=== PATIENT | male | born 2000 | race Native Hawaiian/Other Pacific Islander ===

== ENCOUNTER 2024-09-15 14:01 | Outpatient (AMB) | payer MEDICARE, MEDICAID, SELFPAY ==
--- NOTE | 2024-09-15 14:07 | AM.OFFWIN_ITS ---
Intake Vital Signs 09/15/24 14:13 Weight 137 lb BP 112/70 Blood Pressure Location Rt brachial Position Sitting Pulse 70 Pulse Source Pulse Oximeter Pulse Oximetry (%) 98 Oxygen Delivery Method Room Air Intake Visit Reasons: EP-convulsions Intake Note: Patient here for epilepsy, caregiver states he had an episode about 1 hr ago and fell backwards. denies hitting head or back. Patient Tobacco Use Status: Never used Tobacco Allergies No Known Allergies Allergy (Verified 09/15/24 14:13) Do you need a note to return to daycare/school/sports/work: No HPI HPI Comments History of Present Illness Details Israeli video interpreter deaf used for this visit. History of Present Illness - The patient is a 24-year-old male pres enting with his mom and aunt for a refill of anti-seizure medications and discussion of seizure management. - He relocated from [place] in [facility] and has yet to establish care with a primary care provider. - The patient has run out of oxcarbazine , clobazam, and lamotrigine. Seizures occur even with medication adherence but increase in frequency and severity when medications are missed and when he vapes. - The patient's medical history is signi ficant for a resected brain tumor and a Sentiva neurostimulator implant for seizure control. - The sentiva device needs to be disconn ected during MRI due to magnetic properties, and the patient currently lacks the accompanying magnet recommended for use during episodes. Physical Exam General: Cooperative, healthy appearing, comfortable, no acute distress and well developed Orientation: Patient oriented x3 Limitations: Israeli speaking Head: Normal to inspection, wearing a hat Ears: Hearing grossly normal bilaterally Nose: Normal External nose present Face and sinus: Normal facial exam Eyes: Appearance normal, both eyes and all related structures Neck: Normal visual inspection and Yes full ROM Respiratory: Normal respiratory effort and able to speak in complete sentences. Skin: No rashes or lesions noted Neuro: Patient oriented x3 Extremities: Normal to inspection [facility] Social History Patient Tobacco Use Status: Never used Tobacco Review of Systems Const All systems reviewed & are unremarkable except as noted in HPI and below Physical Exam Vital Signs: Last Vital Signs Pulse 70 09/15/24 14:13 BP 112/70 09/15/24 14:13 Pulse Ox 98 09/15/24 14:13 Oxygen Delivery Method Room Air 09/15/24 14:13 Assessment & Plan Assessment & Plan (1) Epilepsy: Code(s): G40.909 - Epilepsy, unspecified, not intractable, without status epilepticus Qualifiers: Epilepsy type: unspecified Intractability: not intractable Status epilepticus: without status epilepticus Qualified Code(s): G40.909 - Epilepsy, unspecified, not intractable, without status epilepticus Plan: I will refill the patient's anti-seizure medications, providing a 30-day supply of the 3 meds he ran out of, see below, to manage his epilepsy until establishment with a primary care provider. Follow-up with a neurologist is necessary for comprehensive management and assessment of his current regimen. We were able to obtain a New patient appointment with [place] [facility] [place], pt and his family were given all of the information. The patient's brain tumor resection history and Sentiva device for seizure control are noted, and device disconnection for MRIs addressed. Patient was informed and verbally consented to the use of an ambient scribe for clinic note documentation during this visit. Medications: New clobazam 10 mg PO BID 30 days 60 tabs 0RF oxcarbazepine (Trileptal) 600 mg PO BID 30 days 60 tabs 0RF lamotrigine 25 mg PO BID 30 days 60 tabs 0RF Coding Level of Care Code New Pt Level 4 (19378) Diagnoses Nonintractable epilepsy without status epilepticus, unspecified epilepsy type G40.909 Epilepsy type: unspecified Intractability: not intractable Status epilepticus: without status epilepticus
[2024-09-15 14:13] VITALS: BP 112/70; PULSE 70; O2SAT 98
== END 2024-09-15 15:38 | disposition home or self-care (01) ==
PROVIDERS: Visit Provider Physician Assistant
DX: G40.909 Epilepsy, unspecified, not intractable, without status epilepticus (principal)

== ENCOUNTER → 2024-09-15 14:01 | Outpatient (BNVA) | payer MEDICAID, SELFPAY | PROVIDERS: Visit Provider Physician Assistant | DX: G40.909 Epilepsy, unspecified, not intractable, without status epilepticus (principal) | CPT/HCPCS: 99202 ==

== ENCOUNTER 2024-09-27 12:23 | Outpatient (AMB) | payer MEDICARE, MEDICAID, SELFPAY ==
--- NOTE | 2024-09-27 12:24 | MHC.PC.OV ---
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 Gelatin Maker Utility Required: Yes Gelatin Maker Utility Language: Burial Vault Maker Name: Raul [id number] Information Interpreted: non-clinical & clinical Allergies No Known Allergies Allergy (Verified 09/27/24 13:06) Medication List - Last Reconciled 09/27/24 by Rosa Barrios CNP clobazam 10 mg PO BID 30 days divalproex (Depakote) 500 mg PO BID lamotrigine 25 mg PO BID 30 days levetiracetam (Keppra) 500 mg PO BID levetiracetam (Keppra) 1,000 mg PO BID levothyroxine 25 mcg PO DAILY olanzapine 15 mg PO BEDTIME oxcarbazepine (Trileptal) 600 mg PO BID 30 days sertraline 25 mg PO DAILY topiramate (Topamax) 200 mg PO BID Tobacco use date assessed: 09/27/24 Dental Screening Dental Screen Date: 09/27/24 Did you have a dental visit in the last 12 months?: No Did you have a dental problem in the last 6 months where you did not have access to dental care?: No Was dental information given to patient?: Yes HPI HPI Comments History of Present Illness Details 24-year-old Togolese-speaking male, accompanied by her aunt, presents to establish care. He relocated from [place] in May 2024 and has yet to establish care with a primary care provider. He was evaluated at the [facility] walk[facility]in [facility] on 09/15/2024 for antiseizure medications refill. He noted that seizures occur even with medication adherence but increase in frequency and severity when medications are missed and when he vapes. Prior PCP? - [place] Last office visit - 3 months ago Last CPE Unknown Last labs - 08/2024 at [facility] related to seizure admission. Labs were unremarkable except for slightly elevated TSH. Lipid panel was not done. Will recheck TSH/T4 and check lipid panel level. Acute issue(s) - Epilepsy: He is on oxcarbazepine, clobazam, lamotrigine, keppra, depakote, trileptal, topamax. His medications were were initially prescribed at [facility] - Anxiety and Depression: He notes controlled anxiety and depressive symptoms. He is on Sertraline 25 mg daily. He sees a therapist weekly - He notes that he takes olanzapine for sleep - Hypothyroidism: He takes levothyroxine 25 mcg daily Past Medical History - Epilepsy, resected brain tumor and sentiva neurostimulator implant for seizure control. The sentiva device needs to be disconnected during MRI due to magnetic properties, and the patient currently lacks the accompanying magnet recommended for use during episodes, hypothyroidism, anxiety, depression, Surgical History - Brain surgery, sentiva neurostimulator implant to left upper chest Family History - Mom: HTN - Dad: Diabetes Social History - Nonsmoker. Vapes nicotine every day. Does not drink alcohol. Denies recreational drug use - Has been making healthy dietary choices. Active but does not exercise. Generally sleep well Health maintenance - Last eye exam in [place] 2-3 years ago. Referred to ophthalmology for routine eye care - Last dental visit was 2 years ago; encouraged to schedule an appointment with his dentist for routine dental care - Last tetanus vaccine was more than 10 years ago; received Tdap vaccine today - He notes that he is up-to-date on the influenza vaccine [facility] Medical History (Updated 09/27/24 @ 13:59 by Rosa Barrios CNP) Brain tumor Unclassified epileptic seizures Anxiety Surgical History History of surgery of head Family History (Updated 09/27/24 @ 12:47 by Vianey Tavarez MA) Mother High blood pressure Father Diabetes Social History Housing: Apartment Patient Tobacco Use Status: Never used Tobacco e-Cigarette/Vaping Use: Currently Using Second Hand Smoke Exposure: No service: No Current occupational status: disabled Current occupational exposures/hazards: No Cognitive needs: No Hearing needs: No Vision needs: Yes Questionnaire PHQ-9 Over the last 2 weeks, how often have you been bothered by any of the following problems? 1. Little interest or pleasure in doing things: nearly every day 2. Feeling down, depressed, or hopeless: more than half the days 3. Trouble falling or staying asleep, or sleeping too much: several days 4. Feeling tired or having little energy: nearly every day 5. Poor appetite or overeating: more than half the days 6. Feeling bad about yourself - or that you are a failure or have let yourself or your family down: nearly every day 7. Trouble concentrating on things, such as reading the newspaper or watching television: nearly every day 8. Moving or speaking so slowly that other people could have noticed. Or the opposite - being so fidgety or restless that you have been moving around a lot more than usual: nearly every day 9. Thoughts that you would be better off or of hurting yourself in some way: not at all Total score: 20 Depression Screening Interpretation: Positive Depression Screening Follow-up: Existing condition and In treatment Depression Screening Done: Yes 45394 - PHQ-9 Billing: Yes Source: Developed by Drs. Nhan Boyle, Klaudia Kwok, Vazquez Moncada and colleagues, with an educational analilia from [employer]. Thrive Questionnaire Date Thrive assessed: 09/27/24 I am a: Patient What is your living situation today?: I have a steady place to live Within the past 12 months, did the food you bought not last and you didn't have the money to get more?: Sometimes True Within the past 12 months, did you worry whether your food would run out before you got money to buy more?: Sometimes True Do you have trouble paying for medicines?: No Do you have trouble getting transportation to medical appointments?: No Do you have trouble paying your heating and electricity bill?: No Do you have trouble taking care of your child, family member or friend?: Yes Do you have trouble with day-to-day activities such as bathing, preparing meals, shopping, managing finances, etc.?: Yes Are you currently unemployed and looking for a job?: No Are you interested in more education?: Yes Please select the resources that you would like help with: Education Currently or been in a relationship where the following occur: No concerns reported THRIVE Score: 2 AUDIT C Alcohol Use Questionnaire (AUDIT-C) 1. How often do you have a drink containing alcohol?: Never 3. How often do you have six or more drinks on one occasion?: Never Total Score: 0 Score Reviewed/Action Taken: Yes CHRIS-7 AMB Questionnaire CHRIS-7 Date CHRIS - 7 assessed: 09/27/24 Feeling nervous, anxious, or on edge: 3 = Nearly every day Not being able to stop or control worryin = More than half the days Worrying too much about different things: 0 = Not at all Trouble relaxin = Nearly every day Being so restless that it is hard to sit still: 3 = Nearly every day Becoming easily annoyed or irritable: 2 = More than half the days Feeling afraid as if something awful might happen: 0 = Not at all Total CHRIS-7 score (0-4 normal; 5-9 mild; 10-14 moderate; 15-21 severe): 13 Source: Developed by Drs. Nhan Boyle, Klaudia Kwok, Vazquez Moncada and colleagues, with an educational analilia from [employer]. CHRIS-7 Assessment Billing CHRIS-7 Assessment Tool: CHRIS-7 Assessment 96824 Review of Systems Const Details: Denies chills, Denies fatigue, Denies fever(s), Denies headache(s) and Denies weakness HEENT Denies change in vision, Denies dizziness, Denies headache(s), Denies hearing loss, Denies nasal congestion, Denies sinus pain, Denies sinus pressure and Denies sore throat Card Denies chest pain, Denies lightheadedness, Denies dyspnea and Denies other (palpitations) Resp Denies cough, Denies dyspnea and Denies wheezing GI Denies abdominal pain, Denies melena, Denies hematochezia, Denies change in bowel habits, Denies dyspepsia and Denies nausea Denies hematuria and Denies dysuria Musc Denies abnormal gait, Denies myalgias, Denies arthralgias, Denies numbness and Denies tingling Skin/Breast Denies rash, Denies unusual bruising and Denies wounds Neuro Denies abnormal gait, Denies dizziness, Denies headache(s), Denies memory loss, Denies numbness, Denies Sensory deficit (Neuro), Denies tingling and Denies weakness Psych Denies anxiety, Denies depression and Denies memory loss Endo Denies cold intolerance, Denies fatigue, Denies heat intolerance, Denies polydipsia and Denies polyuria Caesar/Lymph Denies easy bleeding and Denies easy bruising Aller/Immun Denies wheezing Physical exam (Primary Care) Vital Signs: Last Vital Signs Temp 97.8 F 09/27/24 12:50 Pulse 88 09/27/24 12:50 Resp 16 09/27/24 12:50 BP 124/71 09/27/24 12:50 Pulse Ox 100 09/27/24 12:50 Oxygen Delivery Method Room Air 09/27/24 12:50 BMI result Body Mass Index 24.1 Tobacco/Smoking Status: Tobacco use Status Tobacco use date assessed 09/27/24 09/27/24 12:54 Patient Tobacco Use Status Never used Tobacco 09/27/24 12:24 e-Cigarette/Vaping Use Currently Using 09/27/24 12:54 PHQ-9: PHQ-9 Score PHQ-9: Total score 20 09/27/24 14:11 Depression Screening Interpretation: Positive Depression Screening Follow-up: Existing condition and In treatment Thrive Assessment: Date of Thrive Assessment Date Thrive assessed 09/27/24 09/27/24 12:59 Currently or been in a relationship where the following occur: No concerns reported Const Other: General: no acute distress, well developed, alert and awake Nutritional Appearance: well nourished Orientation/consciousness: patient oriented x3 HENMT Head: Yes normocephalic and Yes atraumatic Ears: hearing grossly normal bilaterally and TM's normal bilaterally General nose exam: Normal external nose present and Normal nares present Mouth: Normal oral and palatal mucosa present and moist mucous membranes Teeth and gingiva: dentition normal Throat: Yes oropharynx normal Eyes Pupils: Equal, round and reactive pupils present and Pupil accommodation reflex normal EOM: EOMs intact bilaterally Neck Neck: Yes normal visual inspection, Yes no lymphadenopathy and Yes trachea midline Thyroid: Thyroid normal Carotids: no bruits Lymphatic: no lymphadenopathy noted Chest Chest palpation & inspection: normal inspection of the chest Resp Effort & Inspection: normal respiratory effort Auscultation: clear to auscultation bilaterally Cardio Rate: regular rate Rhythm: regular rhythm Heart sounds: S1 normal heart sound present, S2 normal heart sound present, no gallops, no murmurs and no rubs Bruits: no abdominal aortic bruits and no carotid bruits GI Palpation (GI): No Abdominal aortic bruit present, Soft to palpation, nontender, No hepatosplenomegaly present and No Rebound tenderness present Auscultation: normal bowel sounds General: Yes no CVA tenderness Back/Spine/Pelvis Back: no CVA tenderness Cervical Spine: cervical ROM normal and No Cervical spine tenderness Thoracic/Lumbar Spine: thoraco-lumbar ROM normal, No pain with thoraco-lumbar ROM, No thoracic spinal tenderness and No lumbar spinal tenderness Skin General: warm and dry. Normal skin color. Normal skin turgor Lesions: no lesions Rashes: no rashes Trauma: no lacerations or abrasions Wounds: no wounds Nails: normal Neuro General: patient oriented x3, gait normal and CN's II-XI intact bilaterally Cranial nerves: Yes Equal, round and reactive pupils present Cognition (Neuro): normal cognition Gait exam (Neuro): Normal gait present Motor exam (neuro): 5/5 motor strength present throughout Sensory Exam: No Sensory deficit (Neuro) Deep tendon reflexes (DTR's): Right patellar reflex intensity grade: 2+ and Left patellar reflex intensity grade: 2+ Extrem General: Yes normal to inspection, No edema and No calf tenderness Psych Appearance: grossly normal Affect: normal affect Attitude: cooperative Thought process: Normal thought process present Immunizations Boostrix Tdap 2.5 Lf unit-8 mcg-5 Lf/0.5 mL intramuscular syringe Performing Provider: Rosa Barrios CNP Performing Location[place] [facility] Administered by: Berenice Champion RN on 09/27/24 14:09 Dose Route Admin Location Dispensed Lot Number Expiration Date NDC Hydraulic Oil Tool Operator 0.5 mL IM Right Deltoid 0.5 mL [id number] 06/25/26 [id number] Incentive Logic VIS Given Date VIS Provided VIS Publication Date 09/27/24 Single Vaccine 21 Eligibility Eligibility Date Funding Source Not [facility] Eligible 09/27/24 Private Coding Level of Care Code New Pt Level 3 (59527) New Pt Prev Care 18-39yr(14148 Diagnoses Normal physical examination, routine Z00.00 Nonintractable epilepsy without status epilepticus, unspecified epilepsy type G40.909 Epilepsy type: unspecified Intractability: not intractable Status epilepticus: without status epilepticus History of brain tumor Z87.898 Anxiety and depression F41.9; F32.A Eye exam, routine Z01.00 Engages in vaping Z72.89 Laboratory tests ordered as part of a complete physical exam (CPE) Z00.00 Additional Codes CHRIS-7 Assessment Billing - CHRIS-7 Assessment Tool: CHRIS-7 Assessment 00840 ([id number]) PHQ-9 - 66495 - PHQ-9 Billing: Yes ([id number]) Assessment & Plan Assessment & Plan (1) Normal physical examination, routine: Code(s): Z00.00 - Encounter for general adult medical examination without abnormal findings Category: Medical Plan: No significant functional limitation. Continue current treatment regimen. Healthy diet and routine exercise encouraged. Follow-up as planned. Verbalized understanding and agreed with the plan. (2) Epilepsy: Code(s): G40.909 - Epilepsy, unspecified, not intractable, without status epilepticus Category: Medical Qualifiers: Epilepsy type: unspecified Intractability: not intractable Status epilepticus: without status epilepticus Qualified Code(s): G40.909 - Epilepsy, unspecified, not intractable, without status epilepticus Plan: Continue current treatment regimen. Referred to [facility]. Follow-up with symptoms or concerns. Verbalized understanding and agreed with the plan. (3) History of brain tumor: Code(s): Z87.898 - Personal history of other specified conditions Category: Medical Plan: Plan as above. (4) Anxiety and depression: Code(s): F41.9 - Anxiety disorder, unspecified; F32.A - Depression, unspecified Category: Medical Plan: Controlled anxiety and depressive symptoms. PHQ-9 and CHRIS-7 scores revealed severe depression and moderate anxiety respectively. Continue current treatment regimen. Routine exercise encouraged. Follow-up in 2 months or sooner with worsening or new symptoms. Verbalized understanding and agreed with the plan. (5) Eye exam, routine: Code(s): Z01.00 - Encounter for examination of eyes and vision without abnormal findings Category: Medical Plan: Last eye exam in [place] 2-3 years ago. Referred to ophthalmology for routine eye care. (6) Engages in vaping: Code(s): Z72.89 - Other problems related to lifestyle Category: Medical Plan: He vapes nicotine daily which is also risk factor for his seizures. Instructed on the health risks and complications of vaping and encouraged to stop. Nicotine patch ordered as requested; advised to use as prescribed. Instructed on the risks, benefits, and potential adverse reactions of the medication. Follow-up as needed. Verbalized understanding and agreed with the plan. (7) Laboratory tests ordered as part of a complete physical exam (CPE): Code(s): Z00.00 - Encounter for general adult medical examination without abnormal findings Category: Medical Plan: Fasting labs ordered as part of a complete physical exam. Advised to fast for at least 10 hours before getting labs drawn. May drink water Verbalized understanding and agreed with treatment plan. Orders: Orders Lipid Panel Today Z00.00 - Encounter for general adult medical examination without abnormal findings Microalbumin, Random (w Creat) Today Z00.00 - Encounter for general adult medical examination without abnormal findings Vitamin D 25-OH Total Today Z00.00 - Encounter for general adult medical examination without abnormal findings TSH reflex Free T4 Today Z00.00 - Encounter for general adult medical examination without abnormal findings TDaP Immunization Today Z23 - Encounter for immunization Referrals Neurology Referral G40.909 - Epilepsy, unspecified, not intractable, without status epilepticus, Z87.898 - Personal history of other specified conditions Ophthalmology Referral Z01.00 - Encounter for examination of eyes and vision without abnormal findings Medications: New nicotine 1 patch transdermal DAILY 42 ea 0RF 6 weeks
[2024-09-27 12:50] VITALS: BP 124/71; PULSE 88; RESP 16; TEMP 36.6; O2SAT 100; BMI 24.1
== END 2024-09-27 14:16 | disposition home or self-care (01) ==
LOC: HO.HMCFM 12:23
PROVIDERS: PCP Nurse Practitioner Family; Visit Provider Nurse Practitioner Family
DX: Z00.00 Encounter for general adult medical examination without abnormal findings (principal); G40.909 Epilepsy, unspecified, not intractable, without status epilepticus; Z87.898 Personal history of other specified conditions; F41.9 Anxiety disorder, unspecified; F32.A Depression, unspecified; Z72.89 Other problems related to lifestyle; Z23 Encounter for immunization

== ENCOUNTER → 2024-09-27 12:23 | Outpatient (BNVA) | payer MEDICARE, MEDICAID, SELFPAY | PROVIDERS: PCP Nurse Practitioner Family; Visit Provider Nurse Practitioner Family | DX: Z00.00 Encounter for general adult medical examination without abnormal findings (principal); Z23 Encounter for immunization; G40.909 Epilepsy, unspecified, not intractable, without status epilepticus; F41.9 Anxiety disorder, unspecified; F32.A Depression, unspecified; Z72.89 Other problems related to lifestyle | CPT/HCPCS: 90471; 90715; 96127; 99212; 99395 ==

== ENCOUNTER 2024-11-25 14:31 | Outpatient (REF) | payer MEDICARE, MEDICAID, SELFPAY ==
--- NOTE | ~2024-11-25 | XR_ITS ---
EXAMINATION: XR FOOT, LEFT CLINICAL INFORMATION: W19.XXXA - Unspecified fall, initial encounter COMPARISON: None available. TECHNIQUE: AP, lateral, and oblique views of the left foot. FINDINGS: The bones and soft tissues are normal. No fracture. Alignment is anatomic. Joint spaces are maintained. XR/XR foot LT min 3V IMPRESSION: Unremarkable left foot Electronically signed by: Fab Acuna MD 11/25/2024 05:10 PM EDT
== END 2024-11-25 14:32 | disposition home or self-care (01) ==
LOC: HO.HMGCX 14:31
PROVIDERS: PCP Nurse Practitioner Family; Visit Provider Physician Assistant
DX: S92.355A Nondisplaced fracture of fifth metatarsal bone, left foot, initial encounter for closed fracture (principal); S92.345A Nondisplaced fracture of fourth metatarsal bone, left foot, initial encounter for closed fracture; W18.39XA Other fall on same level, initial encounter; Y93.89 Activity, other specified; Y92.009 Unspecified place in unspecified non-institutional (private) residence as the place of occurrence of the external cause; Y99.9 Unspecified external cause status
CPT/HCPCS: 73630; 99212

== ENCOUNTER 2024-11-25 14:31 | Outpatient (AMB) | payer MEDICARE, MEDICAID, SELFPAY ==
[2024-11-25 15:14] VITALS: BP 110/72; PULSE 89; TEMP 36.7; O2SAT 97
--- NOTE | 2024-11-25 15:14 | AM.OFFWIN_ITS ---
Intake Vital Signs 11/25/24 15:14 Height 5 ft 4 in BMI Reason not done Patient refused/unable BP 110/72 Blood Pressure Location Lt brachial Position Sitting Pulse 89 Pulse Source Pulse Oximeter Temp 98.0 F Temp Source Oral Pulse Oximetry (%) 97 Oxygen Delivery Method Room Air Intake Visit Reasons: EP LT foot, painful, swelling Intake Note: Pt presents to the office today for c/o left foot pain and swelling. Pt states he had a seizure and when he was falling from the seizure he landed on his left foot. Patient Tobacco Use Status: Never used Tobacco Data Communications Engineer Required: Yes Data Communications Engineer Language: President And Ceo Name: Cristina([id number]) Allergies No Known Allergies Allergy (Verified 11/25/24 15:15) HPI HPI Comments History of Present Illness Details Filipino video grey goods marker used for this visit. Patient is a 24-year-old Filipino-speaking male who is here with his mother complaining of left foot pain. His mother tells me he sustained an injury to his foot when he was having a seizure yesterday. She states he believes that he twisted his left foot and he has been unable to walk on it since. He tried taking ibuprofen without relief. He tells me most of the pain is in the 2nd 3rd 4th toes and along the lateral side of the foot. He is able to move his ankle and his toes. [facility] Medical History Brain tumor Unclassified epileptic seizures Anxiety Surgical History History of surgery of head Family History Mother High blood pressure Father Diabetes Social History Housing: Apartment Patient Tobacco Use Status: Never used Tobacco e-Cigarette/Vaping Use: Currently Using Second Hand Smoke Exposure: No service: No Current occupational status: disabled Current occupational exposures/hazards: No Cognitive needs: No Hearing needs: No Vision needs: Yes Review of Systems Const All systems reviewed & are unremarkable except as noted in HPI and below Physical Exam Vital Signs: Last Vital Signs Temp 98.0 F 11/25/24 15:14 Pulse 89 11/25/24 15:14 BP 110/72 11/25/24 15:14 Pulse Ox 97 11/25/24 15:14 Oxygen Delivery Method Room Air 11/25/24 15:14 Const General: cooperative, healthy appearing, comfortable and no acute distress Orientation/consciousness: patient oriented x3 Limitations: wheelchair HEENT Head: Yes normal to inspection Resp Effort & Inspection: normal respiratory effort and able to speak in complete sentences Neuro General: patient oriented x3 Extrem Other: Left foot tenderness to palpation of the 2nd 3rd and 4th toes into the mid foot and along the base of the 5th metatarsal extending to the tip of the 5th toe. Full range of motion with pain, neurovascularly intact. Left ankle normal-appearing patient able to move it slightly but do the pain in his toes he is hesitant. Assessment & Plan Assessment & Plan (1) Fall: Code(s): W19.XXXA - Unspecified fall, initial encounter Qualifiers: Encounter type: initial encounter Qualified Code(s): W19.XXXA - Unspecified fall, initial encounter Plan: We will get a foot x-ray to ensure no fracture or dislocation. My interpretation of the foot x-ray is a fracture of the 4th and 5th metatarsals nondisplaced. Gave patient a short boot, he is ambulating well in it. Recommended rest ice ibuprofen and follow up with Orthopedics. Pending final read by radiologist. We will call the patient in the morning if the read is any different. (2) Toe pain, left: Code(s): M79.675 - Pain in left toe(s) Plan: as above (3) Metatarsal fracture: Code(s): S92.309A - Fracture of unspecified metatarsal bone(s), unspecified foot, initial encounter for closed fracture Qualifiers: Encounter type: initial encounter Fracture alignment: nondisplaced Fracture type: closed Laterality: left Metatarsal bone: fifth Qualified Code(s): S92.355A - Nondisplaced fracture of fifth metatarsal bone, left foot, initial encounter for closed fracture Plan: as above (4) Metatarsal fracture: Code(s): S92.309A - Fracture of unspecified metatarsal bone(s), unspecified foot, initial encounter for closed fracture Qualifiers: Encounter type: initial encounter Fracture alignment: nondisplaced Fracture type: closed Laterality: left Metatarsal bone: fourth Qualified Code(s): S92.345A - Nondisplaced fracture of fourth metatarsal bone, left foot, initial encounter for closed fracture Plan: as above Orders: Orders XR foot LT min 3V Today M79.675 - Pain in left toe(s), W19.XXXA - Unspecified fall, initial encounter Referrals Orthopedics Referral S92.355A - Nondisplaced fracture of fifth metatarsal bone, left foot, initial encounter for closed fracture Coding Level of Care Code Est Pt Level 4 (99364) Diagnoses Fall, initial encounter W19.XXXA Encounter type: initial encounter Toe pain, left M79.675 Closed nondisplaced fracture of fifth metatarsal bone of left foot, initial encounter S92.355A Encounter type: initial encounter Fracture alignment: nondisplaced Fracture type: closed Laterality: left Metatarsal bone: fifth
--- OUTSIDE RECORDS SUMMARY | 2024-11-25 17:04 | XMS_ITS | Clinical Summary ---
Author Organization [address] [facility] Address [address] [place] [address] Phone Care Team Providers Care Fast Food Cashier Name Role Phone Emmy Tarango PATTERN PUNCHER Primary Care Prov ider Encounters Date Type Department Care Team Description 11/12/2024 11:30 AM EDT - 11/12/2024 11:59 PM EDT Hospital Encounter [facility] Non-Invasive Cardiology [address] [place] [address] Generalized anxiety disorder Discharge Disposition: Home or Self Care from Last 3 Months Social History Tobacco Use Types Packs/Day Years Used Date Smoking Tobacco: Never Assessed Sex and Gender Information Value Date Recorded Sex Assigned at Not on file Legal Sex Male 11:07 AM EDT Gender Identity Not on file Sexual Orientation Not on file Plan of Treatment Health Maintenance Due Date Last Done Comments HPV Vaccines (1 - Male 3-dos e series) 2014 Hepatitis B Vaccines (1 of 3 - 19+ 3-dose series) 2018 COVID-19 Vaccine (1 - 2023-2 5 season) 2024 Depression Screening 11/12/2024 HIV Screening 11/12/2024 Hepatitis C Screening 11/12/2024 Medicare Annual Wellness Visit 11/12/2024 Social Influencers of Health Screening 11/12/2024 Influenza Vaccine (Season Ended) 2025 Cholesterol Screening (Lipid Panel) 11/12/2029 11/12/2024 DTaP,Tdap,and Td Vaccines (2 - Td or Tdap) 09/27/2034 09/27/2024 HIB Vaccines Aged Out No longer eligi ble based on patient's age to complete this topic Hepatitis A Vaccines Aged Out No long er eligible based on patient's age to complete this topic IPV Vaccines Aged Out No longer eligi ble based on patient's age to complete this topic MMR Vaccines Aged Out No longer eligi ble based on patient's age to complete this topic Meningococcal ACWY Vaccine Aged Out N o longer eligible based on patient's age to complete this topic Meningococcal B Vaccine Aged Out No l onger eligible based on patient's age to complete this topic Pneumococcal Vaccine: Pediat rics (0 to 5 Years) and At-Risk Patients (6 to 64 Years) Aged Out No longer eligi ble based on patient's age to complete this topic RSV Immunization Patients Un julio 20 months Aged Out No longer eligible b ased on patient's age to complete this topic Varicella Vaccines Aged Out No longer eligible based on patient's age to complete this topic Procedures Procedure Name Priority Date/Time Associated Diagnosis Comments ECG 12-LEAD Routine 11/12/2024 12:09 PM EDT Generalized anxiety disorder TRIIODOTHYRONINE FREE Routine 11/12/2024 11:18 AM EDT Drug therapy FREE THYROXINE WITH REFLEX TO FREE TRIIODOTHYRONINE Routine 11/12/2024 11:18 AM EDT Drug therapy CBC WITH AUTO DIFFERENTIAL Routine 11/12/2024 11:18 AM EDT Drug therapy VITAMIN D 25 HYDROXY Routine 11/12/2024 11:18 AM EDT Drug therapy HEMOGLOBIN A1C Routine 11/12/2024 11:18 AM EDT Drug therapy CBC AND DIFFERENTIAL Routine 11/12/2024 11:18 AM EDT Drug therapy THYROID STIMULATING HORMONE WITH REFLEX TO FREE T4 AND FREE T3 Routine 11/12/2024 11:18 AM EDT Drug therapy PHOSPHORUS Routine 11/12/2024 11:18 AM EDT Drug therapy BILIRUBIN, DIRECT Routine 11/12/2024 11: 18 AM EDT Drug therapy LIPID PANEL WITH REFLEX TO DIRECT LDL Routine 11/12/2024 11:18 AM EDT Drug therapy COMPREHENSIVE METABOLIC PANEL Routine 11/12/2024 11:18 AM EDT Drug therapy from Last 3 Months Results * ECG 12 lead (11/12/2024 12:09 PM EDT) Ventricular Rate ECG 101 BPM GEMUSE Atrial Rate 101 BPM GEMUSE P-R Interval 146 ms GEMUSE QRS Duration 84 ms GEMUSE Q-T Interval 332 ms GEMUSE QTc 430 ms GEMUSE P Wave [place] 52 degrees GEMUSE R [place] 64 degrees GEMUSE T [place] 37 degrees GEMUSE ECG Interpretation Sinus tachycardia Otherwise normal ECG No previous ECGs available Confirmed by CELE BOWSER ([id number]) on 11/13/2024 11:44:59 AM GEMUSE 11/12/2024 12:0 9 PM EDT 11/13/2024 11:44 AM EDT Emmy Tarango NP ECG ORDERABLES Fi nal Result Performing Organization Address City/[facility]/ZIP Co de Phone Number GEMUSE * (ABNORMAL) Thyroid stimulating hormone with reflex to free t4 and free t3 (11/12/2024 11:18 AM EDT) Pathologist [facility] TSH 11.88(H) 0.40 - 4.00 mcIU/mL LAB CHEMISTRY METHOD 11/12/2024 2:23 PM EDT [facility] Blood Venous blood specimen / Unknown Venipuncture / Unknown 11/12/2024 11:18 AM EDT 11/12/2024 12:13 PM EDT Emmy Tarango NP LAB BLOOD ORDERABL ES Final Result Performing Organization Address City/[facility]/ZIP Co de Phone Number [facility] [address] [place] [address], [place] [phone] * Free thyroxine with reflex to free triiodothyronine (11/12/2024 11:18 AM EDT) Pathologist [facility] Free T4 0.76 0.70 - 1.80 ng/dL LAB CHEMISTRY METHOD 11/12/2024 2:56 PM EDT [facility] Blood Venous blood specimen / Unknown Venipuncture / Unknown 11/12/2024 11:18 AM EDT 11/12/2024 12:13 PM EDT Emmy Tarango NP LAB BLOOD ORDERABL ES Final Result [facility] [address] [place] [address], [place] [phone] * (ABNORMAL) Lipid panel with reflex to direct LDL (11/12/2024 11:18 AM EDT) [facility] [place] [facility] Cholesterol 245(H) 0 - 200 mg/dL LAB CHEMISTRY METHOD 11/12/2024 1:54 PM EDT [facility] Triglycerides 144 0 - 150 mg/dL LAB CHEMISTRY METHOD 11/12/2024 1:54 PM T [facility] HDL 68 >=40 mg/dL LAB CHEMISTRY METHOD 11/12/2024 1:54 PM EDT [facility] LDL Calculated 148(H) 0 - 100 mg/dL LAB CHEMISTRY METHOD 11/12/2024 1:54 PM EDT [facility] VLDL Cholesterol [place] 28.8 mg/dL LAB CHEMISTRY METHOD 11/12/2024 1:54 PM EDT [facility] Non HDL Chol. (LDL+VLDL) 177(H) <145 mg/dL LAB CHEMISTRY METHOD 11/12/2024 1:54 PM EDT [facility] Chol/HDL Ratio 3.6 0.0 - 4.4 LAB CHEMISTRY METHOD 11/12/2024 1:54 PM EDT [facility] Blood Venous blood specimen / Unknown Venipuncture / Unknown 11/12/2024 11:18 AM EDT 11/12/2024 12:13 PM EDT us Emmy Tarango PATTERN PUNCHER LAB BLOOD ORDERABL ES Final Result [facility] [address] [place] [address], * (ABNORMAL) CBC auto differential (11/12/2024 11:18 AM EDT) WBC 9.7 4.8 - 10.8 K/mcL LAB HEMETOLOGY METHOD 11/12/2024 12:22 PM EDT [facility] RBC 4.30(L) 4.50 - 5.50 M/mcL LAB HEMETOLOGY METHOD 11/12/2024 12:22 PM EDT [facility] Hemoglobin 11.6(L) 13.5 - 17.5 g/dL LAB HEMETOLOGY METHOD 11/12/2024 12:22 PM EDT [facility] Hematocrit 38.1(L) 42.0 - 54.0 % LAB HEMETOLOGY METHOD 11/12/2024 12:22 PM EDT [facility] MCV 88.2 79.0 - 98.0 FL LAB HEMETOLOGY METHOD 11/12/2024 12:22 PM EDT [facility] MCH 26.9(L) 27.0 - 32.0 pcg LAB HEMETOLOGY METHOD 11/12/2024 12:22 PM EDT [facility] MCHC 30.4(L) 32.0 - 37.0 g/dL LAB HEMETOLOGY METHOD 11/12/2024 12:22 PM EDT [facility] RDW 14.1 11.0 - 15.0 % LAB HEMETOLOGY METHOD 11/12/2024 12:22 PM [facility] Platelets 208 130 - 400 K/mcL LAB HEMETOLOGY METHOD 11/12/2024 12:22 PM [facility] MPV 10.4 7.0 - 11.0 FL LAB HEMETOLOGY METHOD 11/12/2024 12:22 PM [facility] NRBC 0.0 <1.0 % LAB HEMETOLOGY METHOD 11/12/2024 12:22 PM [facility] NRBC Absolute 0.00 <0.10 K/mcL LAB HEMETOLOGY METHOD 11/12/2024 12:22 PM [facility] Neutrophils Relative 76.4 % LAB HEMETOLOGY METHOD 11/12/2024 12:22 PM [facility] Lymphocytes Relative 12.6 % LAB HEMETOLOGY METHOD 11/12/2024 12:22 PM [facility] Monocytes Relative 9.0 % LAB HEMETOLOGY METHOD 11/12/2024 12:22 PM [facility] Eosinophils Relative 1.1 % LAB HEMETOLOGY METHOD 11/12/2024 12:22 PM [facility] Basophils Relative 0.2 % LAB HEMETOLOGY METHOD 11/12/2024 12:22 PM [facility] Immature Granulocytes Relative 0.7 % LAB HEMETOLOGY METHOD 11/12/2024 12:22 PM [facility] Neutrophils Absolute 7.42(H) 1.50 - 7.00 K/mcL LAB HEMETOLOGY METHOD 11/12/2024 12:22 PM [facility] Lymphocytes Absolute 1.22 1.00 - 5.00 K/mcL LAB HEMETOLOGY METHOD 11/12/2024 12:22 PM [facility] Monocytes Absolute 0.87 0.20 - 1.00 K/mcL LAB HEMETOLOGY METHOD 11/12/2024 12:22 PM EDT [facility] Eosinophils Absolute 0.11 0.00 - 0.50 K/[facility] LAB HEMETOLOGY METHOD 11/12/2024 12:22 PM EDT [facility] Basophils Absolute 0.02 0.00 - 0.20 K/[facility] LAB HEMETOLOGY METHOD 11/12/2024 12:22 PM EDT [facility] Immature Granulocytes Absolute 0.07(H) 0.00 - 0.03 K/[facility] LAB HEMETOLOGY METHOD 11/12/2024 12:22 PM EDT [facility] Blood Venous blood specimen / Unknown Venipuncture / Unknown 11/12/2024 11:18 AM EDT 11/12/2024 12:11 PM EDT Emmy Tarango LAB BLOOD ORDERABL ES Final Result Performing Organization Address City/[facility]/ZIP Co de Phone Number [facility] [address] [place] [address], [place] [phone] * (ABNORMAL) Vitamin D 25 hydroxy (11/12/2024 11:18 AM EDT) Vit D, 25-Hydroxy 7.7(L) 30.0 - 80.0 ng/mL LAB CHEMISTRY METHOD 11/12/2024 2:36 PM EDT [facility] Blood Venous blood specimen / Unknown Venipuncture / Unknown 11/12/2024 11:18 AM EDT 11/12/2024 12:13 PM EDT Emmy Tarango PATTERN PUNCHER LAB BLOOD ORDERABL ES Final Result Performing Organization Address City/[facility]/ZIP Co de Phone Number [facility] [address] [place] [address], [place] [phone] * Triiodothyronine free (11/12/2024 11:18 AM EDT) T3, Free 253 230 - 420 pcg/dL LAB CHEMISTRY METHOD 11/12/2024 3:59 PM EDT [facility] Blood Venous blood specimen / Unknown Venipuncture / Unknown 11/12/2024 11:18 AM EDT 11/12/2024 12:13 PM EDT Francisca Idalmis Tarango PATTERN PUNCHER LAB BLOOD ORDERABL ES Final Result Performing Organization Address [facility]/ZIP Co de Phone Number [facility] [address] [place] [address], [place] [phone] * Phosphorus (11/12/2024 11:18 AM EDT) Pathologist [facility] Phosphorus 2.8 2.5 - 4.5 mg/dL LAB CHEMISTRY METHOD 11/12/2024 1:49 PM EDT [facility] Blood Venous blood specimen / Unknown Venipuncture / Unknown 11/12/2024 11:18 AM EDT 11/12/2024 12:13 PM EDT Emmy Tarango PATTERN PUNCHER LAB BLOOD ORDERABL ES Final Result Performing Organization Address [facility]/ZIP Co de Phone Number [facility] [address] [place] [address], [place] [phone] * Hemoglobin A1c (11/12/2024 11:18 AM EDT) Hemoglobin A1C 5.1 <6.5 % LAB CHEMISTRY METHOD 11/12/2024 1:47 PM EDT [facility] Mean Bld Glu Estim. 100 mg/dL LAB CHEMISTRY METHOD 11/12/2024 1:47 PM EDT [facility] Blood Venous blood specimen / Unknown Venipuncture / Unknown 11/12/2024 11:18 AM EDT 11/12/2024 12:11 PM EDT Emmy Tarango LAB BLOOD ORDERABL ES Final Result Performing Organization Address [facility]/ZIP Co de Phone Number [facility] [address] [place] [address], [place] [phone] * Bilirubin, direct (11/12/2024 11:18 AM EDT) Bilirubin, Direct <0.1 0.0 - 0.3 mg/dL LAB CHEMISTRY METHOD 11/12/2024 1:54 PM EDT [facility] Blood Venous blood specimen / Unknown Venipuncture / Unknown 11/12/2024 11:18 AM EDT 11/12/2024 12:13 PM EDT Emmy Tarango LAB BLOOD ORDERABL ES Final Result Performing Organization Address [facility] Co de Phone Number [facility] [address] [place] [address], [place] [phone] * (ABNORMAL) Comprehensive metabolic panel (11/12/2024 11:18 AM EDT) Pathologist [facility] Sodium 143 133 - 145 mmol/L LAB CHEMISTRY METHOD 11/12/2024 1:54 PM EDT [facility] Potassium 4.0 3.5 - 5.5 mmol/L LAB CHEMISTRY METHOD 11/12/2024 1:54 PM EDT [facility] Chloride 109 96 - 110 mmol/L LAB CHEMISTRY METHOD 11/12/2024 1:54 PM EDT [facility] CO2 26 21 - 32 mmol/L LAB CHEMISTRY METHOD 11/12/2024 1:54 PM EDT [facility] Anion Gap 8 3 - 11 LAB CHEMISTRY METHOD 11/12/2024 1:54 PM EDT [facility] Glucose 77 70 - 100 mg/dL LAB CHEMISTRY METHOD 11/12/2024 1:54 PM [facility] BUN 10 5 - 25 mg/dL LAB CHEMISTRY METHOD 11/12/2024 1:54 PM [facility] Creatinine 0.90 0.70 - 1.30 mg/dL LAB CHEMISTRY METHOD 11/12/2024 1:54 PM [facility] eGFR 122 >=60 mL/min/1. 73m2 LAB CHEMISTRY METHOD 11/12/2024 1:54 PM [facility] Comment:Calculation based on the Chronic Kidney Disease Epidemiology Collaboration (CKD-EPI) equation refit without adjustment for race. BUN/Creatinine Ratio 11.1 LAB CHEMISTRY METHOD 11/12/2024 1:54 PM [facility] Calcium 9.2 8.5 - 10.5 mg/dL LAB CHEMISTRY METHOD 11/12/2024 1:54 PM [facility] AST (SGOT) 34 10 - 42 unit/L LAB CHEMISTRY METHOD 11/12/2024 1:54 PM [facility] ALT (SGPT) 29 10 - 60 unit/L LAB CHEMISTRY METHOD 11/12/2024 1:54 PM [facility] Alkaline Phosphatase 78 42 - 121 unit/L LAB CHEMISTRY METHOD 11/12/2024 1:54 PM [facility] Total Protein 8.9(H) 6.0 - 8.0 g/dL LAB CHEMISTRY METHOD 11/12/2024 1:54 PM [facility] Albumin 3.9 3.2 - 5.0 g/dL LAB CHEMISTRY METHOD 11/12/2024 1:54 PM [facility] Total Bilirubin 0.2 0.0 - 1.4 mg/dL LAB CHEMISTRY METHOD 11/12/2024 1:54 PM [facility] Blood Venous blood specimen / Unknown Venipuncture / Unknown 11/12/2024 11:18 AM EDT 11/12/2024 12:13 PM EDT us Emmy Tarango PATTERN PUNCHER LAB BLOOD ORDERABL ES Final Result [facility] [address] [place] [address], [place] [phone] from Last 3 Months Insurance MEDICAID - [place] MEDICARE Care Teams Fast Food Cashier Relationship Specialty Start Date End Date Emmy Tarango NP [address] [place] [phone] PCP - General Behavioral Health 11/12/24
== END 2024-11-25 16:45 | disposition home or self-care (01) ==
PROVIDERS: PCP Nurse Practitioner Family; Visit Provider Physician Assistant
DX: M79.675 Pain in left toe(s) (principal); W19.XXXA Unspecified fall, initial encounter; S92.355A Nondisplaced fracture of fifth metatarsal bone, left foot, initial encounter for closed fracture; S92.345A Nondisplaced fracture of fourth metatarsal bone, left foot, initial encounter for closed fracture

== ENCOUNTER → 2024-11-25 15:58 | Outpatient (BNV) | payer MEDICARE, MEDICAID, SELFPAY | PROVIDERS: PCP Nurse Practitioner Family; Visit Provider Radiology Diagnostic Radiology | DX: M79.672 Pain in left foot (principal); W19.XXXA Unspecified fall, initial encounter | CPT/HCPCS: 73630 ==

== ENCOUNTER 2024-12-03 10:05 | Outpatient (AMB) | payer MEDICARE, MEDICAID, SELFPAY ==
--- NOTE | 2024-12-03 10:08 | A.OFFPC_ITS ---
Vital Signs 12/03/24 10:15 Height 5 ft 4 in Weight 145 lb BMI 24.9 BP 122/68 Blood Pressure Location Rt brachial Position Sitting Respiration 16 Pulse 92 Pulse Source Pulse Oximeter Temp 98.1 F Temp Source Oral Pulse Oximetry (%) 100 Oxygen Delivery Method Room Air Intake Visit Reasons: 2 mos Epilepsy, anxiety, depression, hypothyroid Intake Note: patient here for follow up on Epilepsy, anxiety, depression, hypothyroid Registered Nurse Float Pool Required: Yes Registered Nurse Float Pool Language: Protective Signal Operator Name: [email or web address] [id number] Information Interpreted: non-clinical & clinical Accompanied by: Mother Allergies No Known Allergies Allergy (Verified 12/06/24 09:43) Medication List - Last Reconciled 12/03/24 by Rosa Barrios CNP clobazam 10 mg PO BID 30 days divalproex (Depakote) 500 mg PO BID 30 days lamotrigine 25 mg PO BID 30 days levetiracetam (Keppra) 500 mg PO BID 30 days levetiracetam (Keppra) 1,000 mg PO BID 30 days levothyroxine 25 mcg PO DAILY 30 days nicotine 1 patch transdermal DAILY 6 weeks olanzapine 15 mg PO BEDTIME 30 days oxcarbazepine (Trileptal) 600 mg PO BID 30 days sertraline 25 mg PO DAILY 30 days topiramate (Topamax) 200 mg PO BID 30 days Tobacco use date assessed: 12/03/24 Dental Screening Dental Screen Date: 12/03/24 Did you have a dental visit in the last 12 months?: No Did you have a dental problem in the last 6 months where you did not have access to dental care?: No Was dental information given to patient?: No (already gave it to pt) HPI HPI Comments History of Present Illness Details 24-year-old male, accompanied by his mot her and grandmother, presents for epilepsy, hypothyroidism, anxiety, depression, and review of recent lab results. He admits to taking his medications as prescribed without adverse reactions. He reports controlled anxiety and depressive symptoms. He states that he sees a therapist weekly and psychiatrist monthly at [facility]; he started seeing the psychiatrist a week ago. He brought a copy of his recent lab results blood work was done externally. According to his family, patient has been experiencing seizure episodes with related falls almost every day since his last visit. He is wearing an ortho boot s/p recent fall during a recent seizure episode. Was evaluated at [facility] walk-in clinic on 11/25/2024. Xray was negative. He reports mild pain to the left foot. Per his family members, patient consumed significant amount of meat, cheese, and processed foods. He has appointment with [facility] neurology in 02/2025. Interpretation by professional de ionizer operator via telephone. [facility] Medical History (Updated 12/06/24 @ 10:14 by Connie Cardenas MD) Fabricio-Gastaut syndrome, intractable, without status epilepticus Epilepsy Hyperthyroidism Brain tumor Unclassified epileptic seizures Anxiety Surgical History History of surgery of head Family History Mother High blood pressure Father Diabetes Maternal Grandmother High blood pressure CKD (chronic kidney disease) Social History Housing: Apartment Patient Tobacco Use Status: Never used Tobacco e-Cigarette/Vaping Use: Currently Using Second Hand Smoke Exposure: No Use of substances other than those prescribed or required for medical reasons: Yes Substance Use Type Other:: marijuana vape service: No Current occupational status: disabled Current occupational exposures/hazards: No Cognitive needs: No Hearing needs: No Vision needs: Yes Questionnaire PHQ-9 Over the last 2 weeks, how often have you been bothered by any of the following problems? 1. Little interest or pleasure in doing things: nearly every day 2. Feeling down, depressed, or hopeless: not at all 3. Trouble falling or staying asleep, or sleeping too much: nearly every day 4. Feeling tired or having little energy: nearly every day 5. Poor appetite or overeating: not at all 7. Trouble concentrating on things, such as reading the newspaper or watching television: nearly every day 8. Moving or speaking so slowly that other people could have noticed. Or the opposite - being so fidgety or restless that you have been moving around a lot more than usual: nearly every day 9. Thoughts that you would be better off or of hurting yourself in some way: not at all Depression Screening Interpretation: Positive Depression Screening Follow-up: Existing condition and In treatment Depression Screening Done: Yes 29536 - PHQ-9 Billing: Yes Source: Developed by Klaudia Alatorre, Vazquez Moncada and colleagues, with an educational analilia from [employer]. Thrive Questionnaire Date Thrive assessed: 09/27/24 I am a: Patient What is your living situation today?: I have a steady place to live Within the past 12 months, did the food you bought not last and you didn't have the money to get more?: Never true Within the past 12 months, did you worry whether your food would run out before you got money to buy more?: Sometimes True Do you have trouble paying for medicines?: No Do you have trouble getting transportation to medical appointments?: No Do you have trouble paying your heating and electricity bill?: No Do you have trouble taking care of your child, family member or friend?: I choose not to answer this question Do you have trouble with day-to-day activities such as bathing, preparing meals, shopping, managing finances, etc.?: Yes Are you currently unemployed and looking for a job?: Yes Are you interested in more education?: I choose not to answer this question Please select the resources that you would like help with: None Currently or been in a relationship where the following occur: No concerns reported THRIVE Score: 1 AUDIT C Alcohol Use Questionnaire (AUDIT-C) 1. How often do you have a drink containing alcohol?: Never Total Score: 0 CHRIS-7 AMB Questionnaire CHRIS-7 Date CHRIS - 7 assessed: 12/03/24 Feeling nervous, anxious, or on edge: 3 = Nearly every day Not being able to stop or control worryin = Not at all Worrying too much about different things: 0 = Not at all Trouble relaxin = Nearly every day Being so restless that it is hard to sit still: 3 = Nearly every day Becoming easily annoyed or irritable: 3 = Nearly every day Feeling afraid as if something awful might happen: 0 = Not at all Total CHRIS-7 score (0-4 normal; 5-9 mild; 10-14 moderate; 15-21 severe): 12 Source: Developed by Klaudia Alatorre Kurt Kroenke and colleagues, with an educational analilia from [employer]. CHRIS-7 Assessment Billing CHRIS-7 Assessment Tool: CHRIS-7 Assessment 62232 Review of Systems Const Details: Const Denies chills, Denies fatigue, Denies fever(s), Denies headache(s) and Denies weakness ENT Denies dizziness and Denies headache(s) Card Denies chest pain, Denies lightheadedness, Denies dyspnea and Denies other (Palpitations) Resp Denies cough, Denies dyspnea, Denies wheezing and Denies other ( shortness of breath) GI Denies abdominal pain, Denies melena, Denies hematochezia, Denies change in bowel habits, Denies dyspepsia and Denies nausea Denies hematuria and Denies dysuria Musc Reports as per HPI Skin/Breast Denies rash, Denies unusual bruising and Denies wounds Neuro Denies abnormal gait, Denies dizziness, Denies headache(s), Denies memory loss, Denies numbness, Denies Sensory deficit (Neuro), Denies tingling and Denies weakness Psych Denies anxiety, Denies depression, Denies memory loss Endo Denies cold intolerance, Denies fatigue, Denies heat intolerance, Denies polydipsia and Denies polyuria Aller/Immun Denies wheezing Physical exam (Primary Care) Vital Signs: Last Vital Signs Temp 98.1 F 12/03/24 10:15 Pulse 92 12/03/24 10:15 Resp 16 12/03/24 10:15 BP 122/68 12/03/24 10:15 Pulse Ox 100 12/03/24 10:15 Oxygen Delivery Method Room Air 12/03/24 10:15 BMI result Body Mass Index 24.9 Tobacco/Smoking Status: Tobacco use Status Tobacco use date assessed 12/03/24 12/03/24 10:18 Patient Tobacco Use Status Never used Tobacco 12/03/24 10:12 e-Cigarette/Vaping Use Currently Using 12/03/24 10:12 PHQ-9: PHQ-9 Score PHQ-9: Total score 15 12/03/24 10:23 Depression Screening Interpretation: Positive Depression Screening Follow-up: Existing condition and In treatment Thrive Assessment: Date of Thrive Assessment Date Thrive assessed 09/27/24 12/03/24 10:12 Currently or been in a relationship where the following occur: No concerns reported Const Other: General: no acute distress and well developed Nutritional Appearance: well nourished Orientation/consciousness: patient oriented x3 [facility] Head: Yes normocephalic and Yes atraumatic Eyes General: appearance normal, both eyes and all related structures Pupils: Equal, round and reactive pupils present EOM: EOMs intact bilaterally Resp Effort & Inspection: normal respiratory effort Auscultation: clear to auscultation bilaterally Cardio Rate: regular rate Rhythm: regular rhythm Heart sounds: S1 normal heart sound present, S2 normal heart sound present, no gallops, no murmurs and no rubs GI Palpation (GI): No Abdominal aortic bruit present, Soft to palpation, nontender, No hepatosplenomegaly present and No Rebound tenderness present Auscultation: normal bowel sounds General: Yes no CVA tenderness Back/Spine/Pelvis Back: no CVA tenderness Cervical Spine: cervical ROM normal and No Cervical spine tenderness Thoracic/Lumbar Spine: thoraco-lumbar ROM normal, No pain with thoraco-lumbar ROM, No thoracic spinal tenderness and No lumbar spinal tenderness Extrem General: Yes normal to inspection, No edema and No calf tenderness Skin General: warm and dry. Normal skin color. Normal skin turgor Neuro General: patient oriented x3, gait normal and no focal neuro deficit Cranial nerves: Yes Equal, round and reactive pupils present Cognition (Neuro): normal cognition Gait exam (Neuro): Normal gait present Sensory Exam: No Sensory deficit (Neuro) Psych Appearance: grossly normal Affect: normal affect Attitude: cooperative Thought process: Normal thought process present Coding Level of Care Code Est Pt Level 4 (19238) Diagnoses Anxiety and depression F41.9; F32.A Nonintractable epilepsy without status epilepticus, unspecified epilepsy type G40.909 Epilepsy type: unspecified Intractability: not intractable Status epilepticus: without status epilepticus Sprain of left foot S93.602A Normocytic anemia D64.9 Hypothyroidism E03.9 Hypercholesterolemia E78.00 Vitamin D deficiency E55.9 Additional Codes CHRIS-7 Assessment Billing - CHRIS-7 Assessment Tool: CHRIS-7 Assessment 63629 ([id number]) PHQ-9 - 32059 - PHQ-9 Billing: Yes ([id number]) Assessment & Plan Assessment & Plan (1) Anxiety and depression: Code(s): F41.9 - Anxiety disorder, unspecified; F32.A - Depression, unspecified Category: Medical Plan: He reports controlled anxiety and depressive symptoms. He states that he sees a therapist weekly and psychiatrist monthly at [facility]; he started seeing the psychiatrist a week ago. PHQ-9 and CHRIS-7 scores revealed moderately severe depression and moderate anxiety respectively. Continue current treatment regimen. Routine exercise encouraged. Follow-up with therapist and psychiatrist as planned. Verbalized understanding and agreed with the treatment plan. (2) Epilepsy: Code(s): G40.909 - Epilepsy, unspecified, not intractable, without status epilepticus Category: Medical Qualifiers: Epilepsy type: unspecified Intractability: not intractable Status epilepticus: without status epilepticus Qualified Code(s): G40.909 - Epilepsy, unspecified, not intractable, without status epilepticus Plan: According to his family, patient has been experiencing seizure episodes with related falls almost every day since his last visit. He is wearing an ortho boot s/p recent fall during a recent seizure episode. Was evaluated at [facility] walk-in clinic on 11/25/2024. Xray was negative. He reports mild pain to the left foot. May take Tylenol ibuprofen as needed. Encouraged to wean himself off the boot in the next 2 weeks and follow-up with Ortho, as instructed by the walk-in clinic provider. He is already on high doses of multiple antiseizure medications. The medical tech contacted [facility] Neurology for sooner appointment rather than waiting till February. Patient was given an appointment for next Friday. Patient is a family members instructed on safety to prevent fall and injury. Follow-up in 2 months. Go to the ED with worsening or new symptoms. Verbalized understanding and agreed with the plan. (3) Sprain of left foot: Code(s): S93.602A - Unspecified sprain of left foot, initial encounter Category: Medical Plan: Plan as above. (4) Normocytic anemia: Code(s): D64.9 - Anemia, unspecified Category: Medical Plan: Recent RBC and H&H levels in 11/12/2024 are slightly low, 4.30 and 11.6/38.1 respectively, MCV is normal, 88.2. Will recheck CBC in 2 months and check iron profile, ferritin level, vitamin B12, and folate levels. Will make changes as needed. Verbalized understanding and agreed with the plan. (5) Hypothyroidism: Code(s): E03.9 - Hypothyroidism, unspecified Category: Medical Plan: TSH in 11/12/2024 was significantly elevated, 11.88, free T4 was normal. Levothyroxine increased to 75 mcg daily, advised to take as prescribed. Will recheck TSH/T4 in 2 months. Verbalized understanding and agreed with the plan. (6) Hypercholesterolemia: Code(s): E78.00 - Pure hypercholesterolemia, unspecified Category: Medical Plan: Total cholesterol and LDL level in 11/12/2024 were significantly elevated, 245 and 148 respectively, triglycerides and HDL levels are normal. Per his family members, patient consumed significant amount of meat, cheese, and processed foods. Advised to limit foods high in saturated fat and avoid foods high in trans fat. Routine exercise encouraged. Fast for 10-12 hours, may drink water, and perform lipid panel blood work 2-3 days before next visit. Follow-up in 2 months. Verbalized understanding and agreed with the plan. (7) Vitamin D deficiency: Code(s): E55.9 - Vitamin D deficiency, unspecified Category: Medical Plan: Vitamin D level in 11/12/2024 was significantly low, 7.7. Vitamin D3 2000 units daily ordered; advised to take as prescribed. Instructed that the sun is a good source of vitamin-D. Will recheck vitamin-D level in 2 months. Verbalized understanding and agreed with the plan. Orders: Orders IRON PROFILE 2 Months D64.9 - Anemia, unspecified Complete Blood Count no Diff 2 Months D64.9 - Anemia, unspecified Ferritin 2 Months D64.9 - Anemia, unspecified Vitamin B12 and Folate 2 Months D64.9 - Anemia, unspecified Vitamin D 25-OH Total 2 Months E55.9 - Vitamin D deficiency, unspecified TSH reflex Free T4 2 Months E03.9 - Hypothyroidism, unspecified Lipid Panel 2 Months E78.00 - Pure hypercholesterolemia, unspecified Medications: New levothyroxine (Levoxyl) 75 mcg PO DAILY 30 tabs 3RF 30 days cholecalciferol (vitamin D3) 50 mcg PO DAILY 90 tabs 2RF 90 days Discontinued levothyroxine Discontinued Reason: Doctor's Order 25 mcg PO DAILY 30 days 30 caps 3RF
[2024-12-03 10:15] VITALS: BP 122/68; PULSE 92; RESP 16; TEMP 36.7; O2SAT 100; BMI 24.9
--- OUTSIDE RECORDS SUMMARY | 2024-12-03 10:23 | XMS_ITS | Clinical Summary ---
Author Organization 299 [facility] Address [address] [place] [address] Phone Care Team Providers Care Mechanical Maintenance Technician Name Role Phone Emmy Tarango RETAIL STORE ASSISTANT Primary Care Prov ider Encounters Date Type Department Care Team Description 11/12/2024 11:30 AM EDT - 11/12/2024 11:59 PM EDT Hospital Encounter [facility] Non-Invasive Cardiology [address] [place] [address] Generalized anxiety disorder Discharge Disposition: [...] GEMUSE QTc 430 ms GEMUSE P Wave [place] 52 degrees GEMUSE R [place] 64 degrees GEMUSE T [place] 37 degrees GEMUSE ECG Interpretation Sinus tachycardia Otherwise normal ECG No previous ECGs available Confirmed by CELE BOWSER ([id number]) on 11/13/2024 11:44:59 AM GEMUSE 11/12/2024 12:0 9 PM EDT 11/13/2024 11:44 AM EDT Emmy Tarango NP ECG ORDERABLES Fi nal Result Performing Organization Address City/[facility]/ZIP Co de Phone Number GEMUSE * (ABNORMAL) Thyroid stimulating hormone with reflex to free t4 and free t3 (11/12/2024 11:18 AM EDT) Pathologist [facility] [place] TSH 11.88(H) 0.40 - 4.00 mcIU/mL LAB CHEMISTRY METHOD 11/12/2024 2:23 PM EDT [facility] Blood Venous blood specimen / Unknown Venipuncture / Unknown 11/12/2024 11:18 AM EDT 11/12/2024 12:13 PM EDT Emmy Tarango NP LAB BLOOD ORDERABL ES Final Result Performing Organization Address City/[facility]/ZIP Co de Phone Number [facility] [address] [place] [address], [place] [phone] * Free thyroxine with reflex to free triiodothyronine (11/12/2024 11:18 AM EDT) Pathologist [facility] [place] Free T4 0.76 0.70 - 1.80 ng/dL LAB CHEMISTRY METHOD 11/12/2024 2:56 PM EDT [facility] Blood Venous blood specimen / Unknown Venipuncture / Unknown 11/12/2024 11:18 AM EDT 11/12/2024 12:13 PM EDT Emmy Tarango NP LAB BLOOD ORDERABL ES Final Result [facility] [address] [place] [address], [place] [phone] * (ABNORMAL) Lipid panel with reflex to direct LDL (11/12/2024 11:18 AM EDT) [facility] Cholesterol 245(H) 0 - 200 mg/dL LAB CHEMISTRY METHOD 11/12/2024 1:54 PM EDT [facility] Triglycerides 144 0 - 150 mg/dL LAB CHEMISTRY METHOD 11/12/2024 1:54 PM T [facility] HDL 68 >=40 mg/dL LAB CHEMISTRY METHOD 11/12/2024 1:54 PM EDT [facility] LDL Calculated 148(H) 0 - 100 mg/dL LAB CHEMISTRY METHOD 11/12/2024 1:54 PM EDT [facility] VLDL Cholesterol [place] 28.8 mg/dL LAB CHEMISTRY METHOD 11/12/2024 1:54 PM EDT [facility] Non HDL Chol. (LDL+VLDL) 177(H) <145 mg/dL LAB CHEMISTRY METHOD 11/12/2024 1:54 PM EDT [facility] Chol/HDL Ratio 3.6 0.0 - 4.4 LAB CHEMISTRY METHOD 11/12/2024 1:54 PM EDT [facility] Blood Venous blood specimen / Unknown Venipuncture / Unknown 11/12/2024 11:18 AM EDT 11/12/2024 12:13 PM EDT us Emmy Tarango RETAIL STORE ASSISTANT LAB BLOOD ORDERABL ES Final Result [facility] [address] [place] [address], * (ABNORMAL) CBC auto differential (11/12/2024 11:18 AM EDT) WBC 9.7 4.8 - 10.8 K/mcL LAB HEMETOLOGY METHOD 11/12/2024 12:22 PM EDT [facility] RBC 4.30(L) 4.50 - 5.50 M/mcL LAB HEMETOLOGY METHOD 11/12/2024 12:22 PM EDT [facility] Hemoglobin 11.6(L) 13.5 - 17.5 g/dL LAB HEMETOLOGY METHOD 11/12/2024 12:22 PM EDT [facility] Hematocrit 38.1(L) 42.0 - 54.0 % LAB HEMETOLOGY METHOD 11/12/2024 12:22 PM EDT [facility] MCV 88.2 79.0 - 98.0 FL LAB HEMETOLOGY METHOD 11/12/2024 12:22 PM EDT [facility] MCH 26.9(L) 27.0 - 32.0 pcg LAB HEMETOLOGY METHOD 11/12/2024 12:22 PM EDT [facility] MCHC 30.4(L) 32.0 - 37.0 g/dL LAB HEMETOLOGY METHOD 11/12/2024 12:22 PM EDT [facility] RDW 14.1 11.0 - 15.0 % LAB HEMETOLOGY METHOD 11/12/2024 12:22 PM [facility] Platelets 208 130 - 400 K/mcL LAB HEMETOLOGY METHOD 11/12/2024 12:22 PM [facility] MPV 10.4 7.0 - 11.0 FL LAB HEMETOLOGY METHOD 11/12/2024 12:22 PM [facility] NRBC 0.0 <1.0 % LAB HEMETOLOGY METHOD 11/12/2024 12:22 PM [facility] NRBC Absolute 0.00 <0.10 K/mcL LAB HEMETOLOGY METHOD 11/12/2024 12:22 PM [facility] Neutrophils Relative 76.4 % LAB HEMETOLOGY METHOD 11/12/2024 12:22 PM [facility] Lymphocytes Relative 12.6 % LAB HEMETOLOGY METHOD 11/12/2024 12:22 PM [facility] Monocytes Relative 9.0 % LAB HEMETOLOGY METHOD 11/12/2024 12:22 PM [facility] Eosinophils Relative 1.1 % LAB HEMETOLOGY METHOD 11/12/2024 12:22 PM [facility] Basophils Relative 0.2 % LAB HEMETOLOGY METHOD 11/12/2024 12:22 PM [facility] Immature Granulocytes Relative 0.7 % LAB HEMETOLOGY METHOD 11/12/2024 12:22 PM [facility] Neutrophils Absolute 7.42(H) 1.50 - 7.00 K/mcL LAB HEMETOLOGY METHOD 11/12/2024 12:22 PM [facility] Lymphocytes Absolute 1.22 1.00 - 5.00 K/mcL LAB HEMETOLOGY METHOD 11/12/2024 12:22 PM [facility] Monocytes Absolute 0.87 0.20 - 1.00 K/mcL LAB HEMETOLOGY METHOD 11/12/2024 12:22 PM EDT [facility] Eosinophils Absolute 0.11 0.00 - 0.50 K/[facility] LAB HEMETOLOGY METHOD 11/12/2024 12:22 PM EDT [facility] Basophils Absolute 0.02 0.00 - 0.20 K/[facility] LAB HEMETOLOGY METHOD 11/12/2024 12:22 PM EDT [facility] Immature Granulocytes Absolute 0.07(H) 0.00 - 0.03 K/[facility] LAB HEMETOLOGY METHOD 11/12/2024 12:22 PM EDT [facility] Blood Venous blood specimen / Unknown Venipuncture / Unknown 11/12/2024 11:18 AM EDT 11/12/2024 12:11 PM EDT Emmy Tarango LAB BLOOD ORDERABL ES Final Result Performing Organization Address City/[facility]/ZIP Co de Phone Number [facility] [address] [place] [address], [place] [phone] * (ABNORMAL) Vitamin D 25 hydroxy (11/12/2024 11:18 AM EDT) Vit D, 25-Hydroxy 7.7(L) 30.0 - 80.0 ng/mL LAB CHEMISTRY METHOD 11/12/2024 2:36 PM EDT [facility] Blood Venous blood specimen / Unknown Venipuncture / Unknown 11/12/2024 11:18 AM EDT 11/12/2024 12:13 PM EDT Emmy Tarango RETAIL STORE ASSISTANT LAB BLOOD ORDERABL ES Final Result Performing Organization Address City/[facility]/ZIP Co de Phone Number [facility] [address] [place] [address], [place] [phone] * Triiodothyronine free (11/12/2024 11:18 AM EDT) T3, Free 253 230 - 420 pcg/dL LAB CHEMISTRY METHOD 11/12/2024 3:59 PM EDT [facility] Blood Venous blood specimen / Unknown Venipuncture / Unknown 11/12/2024 11:18 AM EDT 11/12/2024 12:13 PM EDT Francisca Idalmis Tarango RETAIL STORE ASSISTANT LAB BLOOD ORDERABL ES Final Result Performing Organization Address [facility]/ZIP Co de Phone Number [facility] [address] [place] [address], [place] [phone] * Phosphorus (11/12/2024 11:18 AM EDT) Pathologist [facility] [place] Phosphorus 2.8 2.5 - 4.5 mg/dL LAB CHEMISTRY METHOD 11/12/2024 1:49 PM EDT [facility] Blood Venous blood specimen / Unknown Venipuncture / Unknown 11/12/2024 11:18 AM EDT 11/12/2024 12:13 PM EDT Emmy Tarango RETAIL STORE ASSISTANT LAB BLOOD ORDERABL ES Final Result Performing Organization Address [facility]/ZIP Co de Phone Number [facility] [address] [place] [address], [place] [phone] * Hemoglobin A1c (11/12/2024 11:18 AM EDT) Hemoglobin A1C 5.1 <6.5 % LAB CHEMISTRY METHOD 11/12/2024 1:47 PM EDT [facility] Mean Bld Glu Estim. 100 mg/dL LAB CHEMISTRY METHOD 11/12/2024 1:47 PM EDT [facility] Blood Venous blood specimen / Unknown Venipuncture / Unknown 11/12/2024 11:18 AM EDT 11/12/2024 12:11 PM EDT Emmy Tarango LAB BLOOD ORDERABL ES Final Result Performing Organization Address [facility]/ZIP Co de Phone Number [facility] [address] [place] [address], [place] [phone] * Bilirubin, direct (11/12/2024 11:18 AM EDT) Bilirubin, Direct <0.1 0.0 - 0.3 mg/dL LAB CHEMISTRY METHOD 11/12/2024 1:54 PM EDT [facility] Blood Venous blood specimen / Unknown Venipuncture / Unknown 11/12/2024 11:18 AM EDT 11/12/2024 12:13 PM EDT Emmy Tarango LAB BLOOD ORDERABL ES Final Result Performing Organization Address [facility] Co de Phone Number [facility] [address] [place] [address], [place] [phone] * (ABNORMAL) Comprehensive metabolic panel (11/12/2024 11:18 AM EDT) Pathologist [facility] [place] Sodium 143 133 - 145 mmol/L LAB CHEMISTRY METHOD 11/12/2024 1:54 PM EDT [facility] Potassium 4.0 3.5 - 5.5 mmol/L LAB CHEMISTRY METHOD 11/12/2024 1:54 PM EDT [facility] Chloride 109 96 - 110 mmol/L LAB CHEMISTRY METHOD 11/12/2024 1:54 PM EDT [facility] CO2 26 21 - 32 mmol/L LAB CHEMISTRY METHOD 11/12/2024 1:54 PM EDT [facility] Anion Gap 8 3 - 11 LAB CHEMISTRY METHOD 11/12/2024 1:54 PM EDT [facility] Glucose 77 70 - 100 mg/dL LAB CHEMISTRY METHOD 11/12/2024 1:54 PM [facility] BUN 10 5 - 25 mg/dL LAB CHEMISTRY METHOD 11/12/2024 1:54 PM [facility] Creatinine 0.90 0.70 - 1.30 mg/dL LAB CHEMISTRY METHOD 11/12/2024 1:54 PM [facility] eGFR 122 >=60 mL/min/1. 73m2 LAB CHEMISTRY METHOD 11/12/2024 1:54 PM [facility] Comment:Calculation based on the Chronic Kidney Disease Epidemiology Collaboration (CKD-EPI) equation refit without adjustment for race. BUN/Creatinine Ratio 11.1 LAB CHEMISTRY METHOD 11/12/2024 1:54 PM [facility] Calcium 9.2 8.5 - 10.5 mg/dL LAB CHEMISTRY METHOD 11/12/2024 1:54 PM [facility] AST (SGOT) 34 10 - 42 unit/L LAB CHEMISTRY METHOD 11/12/2024 1:54 PM [facility] ALT (SGPT) 29 10 - 60 unit/L LAB CHEMISTRY METHOD 11/12/2024 1:54 PM [facility] Alkaline Phosphatase 78 42 - 121 unit/L LAB CHEMISTRY METHOD 11/12/2024 1:54 PM [facility] Total Protein 8.9(H) 6.0 - 8.0 g/dL LAB CHEMISTRY METHOD 11/12/2024 1:54 PM [facility] Albumin 3.9 3.2 - 5.0 g/dL LAB CHEMISTRY METHOD 11/12/2024 1:54 PM [facility] Total Bilirubin 0.2 0.0 - 1.4 mg/dL LAB CHEMISTRY METHOD 11/12/2024 1:54 PM [facility] Blood Venous blood specimen / Unknown Venipuncture / Unknown 11/12/2024 11:18 AM EDT 11/12/2024 12:13 PM EDT us Emmy Tarango RETAIL STORE ASSISTANT LAB BLOOD ORDERABL ES Final Result [facility] [address] [place] [address], [place] [phone] from Last 3 Months Insurance MEDICAID - [place] MEDICARE Care Teams Mechanical Maintenance Technician Relationship Specialty Start Date End Date Emmy Tarango NP [address] [place] [phone] PCP - General Behavioral Health 11/12/24
== END 2024-12-03 10:48 | disposition home or self-care (01) ==
LOC: HO.HMCFM 10:06
PROVIDERS: PCP Nurse Practitioner Family; Visit Provider Nurse Practitioner Family
DX: F41.9 Anxiety disorder, unspecified (principal); F32.A Depression, unspecified; G40.909 Epilepsy, unspecified, not intractable, without status epilepticus; S93.602A Unspecified sprain of left foot, initial encounter; D64.9 Anemia, unspecified; E03.9 Hypothyroidism, unspecified; E78.00 Pure hypercholesterolemia, unspecified; E55.9 Vitamin D deficiency, unspecified

== ENCOUNTER → 2024-12-03 10:05 | Outpatient (BNVA) | payer MEDICARE, MEDICAID, SELFPAY | PROVIDERS: PCP Nurse Practitioner Family; Visit Provider Nurse Practitioner Family | DX: F41.9 Anxiety disorder, unspecified (principal); F32.A Depression, unspecified; S93.602D Unspecified sprain of left foot, subsequent encounter; E03.9 Hypothyroidism, unspecified; E78.00 Pure hypercholesterolemia, unspecified; E55.9 Vitamin D deficiency, unspecified | CPT/HCPCS: 96127; 99212 ==

== ENCOUNTER 2024-12-06 09:36 | Outpatient (AMB) | payer MEDICARE, MEDICAID, SELFPAY ==
--- NOTE | 2024-12-06 09:40 | A.OFFVIS_ITS ---
Vital Signs 12/06/24 09:43 Height 5 ft 4 in Weight 145 lb BMI 24.9 BP 112/80 Blood Pressure Location Rt brachial Position Sitting Pulse 92 Pulse Source Pulse Oximeter Pulse Oximetry (%) 98 Oxygen Delivery Method Room Air Intake Visit Reasons: INP-Epilepsy Intake Note: in house referred Rosa Thurston for nonitracatable epilepsy [employer]unnel [employer]n Firer Required: Yes [employer] Firer Services: Tunnel [employer]n Firer Present Tunnel [employer]n Firer Name: bessie ponce Allergies No Known Allergies Allergy (Verified 12/06/24 09:43) Medication List - Last Reconciled 12/06/24 by Connie Cardenas MD cholecalciferol (vitamin D3) 50 mcg PO DAILY 90 days clobazam 10 mg PO BID 30 days divalproex (Depakote) 500 mg PO BID 30 days lamotrigine 25 mg PO BID 30 days levetiracetam (Keppra) 500 mg PO BID 30 days levetiracetam (Keppra) 1,000 mg PO BID 30 days levothyroxine (Levoxyl) 75 mcg PO DAILY 30 days nicotine 1 patch transdermal DAILY 6 weeks olanzapine 15 mg PO BEDTIME 30 days oxcarbazepine (Trileptal) 600 mg PO BID 30 days sertraline 25 mg PO DAILY 30 days sertraline 50 mg PO QAM topiramate (Topamax) 200 mg PO BID 30 days HPI Comments Details: 24-year-old male, accompanied by his mother and grandmother, presents for further managemnt of seizure. A certfied field service coordinator Bessie Ponce helped todays visit. He had a Brain tumour at age 7, had surgery and gu seziures since then. he moved from [place] 6 mths ago and has been seeing a neurologist there. The episodes are - usually eyes rolling back , generalized shaking , no incontinence , unresponsive, falls.He is confused after the episodes. He has very frequent episodes now - almost daily episodes.He is compliant with meds.He is on keppra, clobazam, depakote , trileptal and lamotrigine. He admits to taking his medications as prescribed without adverse reactions. He studied upto 8th grade, needs help with dressing , tying sneakers etc He reports controlled anxiety and depressive symptoms. He states that he sees a therapist weekly and psychiatrist monthly at [facility]; he started seeing the psychiatrist a week ago. [facility] Medical History (Updated 12/06/24 @ 10:14 by Connie Cardenas MD) [place]-Gastaut syndrome, intractable, without status epilepticus Epilepsy Hyperthyroidism Brain tumor Unclassified epileptic seizures Anxiety Surgical History History of surgery of head Family History Mother High blood pressure Father Diabetes Maternal Grandmother High blood pressure CKD (chronic kidney disease) Social History Housing: Apartment Patient Tobacco Use Status: Never used Tobacco e-Cigarette/Vaping Use: Currently Using Second Hand Smoke Exposure: No Use of substances other than those prescribed or required for medical reasons: Yes Substance Use Type Other:: marijuana vape service: No Current occupational status: disabled Current occupational exposures/hazards: No Cognitive needs: No Hearing needs: No Vision needs: Yes Physical Exam Vital Signs: Last Vital Signs Pulse 92 12/06/24 09:43 BP 112/80 12/06/24 09:43 Pulse Ox 98 12/06/24 09:43 Oxygen Delivery Method Room Air 12/06/24 09:43 BMI result Body Mass Index 24.9 Const General: cooperative and comfortable Nutritional Appearance: average body habitus Orientation/consciousness: oriented to person and oriented to place Eyes Pupils: Equal, round and reactive pupils present Neuro Other: stooped , mild slowness no tremors Gait- mild wide based slow General: oriented to person and oriented to place Cranial nerves: Yes Facial sensation intact/muscles of mastication intact, Yes Equal, round and reactive pupils present, Yes Bilaterally intact EOM present, Yes Nystagmus not present, Yes Normal facial strength present, Yes Midline tongue present, Yes Symmetric palate elevation present and Yes Ability to bilaterally elevate shoulders present Cognition (Neuro): abnormal cognition Motor exam (neuro): 5/5 motor strength present throughout and Normal motor muscle tone present throughout Deep tendon reflexes (DTR's): Right triceps reflex intensity grade: 1+, Left triceps reflex intensity grade: 1+, Rt Biceps (C5, C6): 1+, Left biceps reflex intensity grade: 1+, Right brachioradialis reflex intensity grade: 1+, Left brachioradialis reflex intensity grade: 1+, Right patellar reflex intensity grade: 1+ and Left patellar reflex intensity grade: 1+ Coordination: [id number] test normal Assessment & Plan Assessment & Plan (1) Epilepsy: Comment: S/P brain tumour since age 7 Code(s): G40.909 - Epilepsy, unspecified, not intractable, without status epilepticus Category: Medical Qualifiers: Epilepsy type: other generalized Intractability: intractable Status epilepticus: without status epilepticus Qualified Code(s): G40.419 - Other generalized epilepsy and epileptic syndromes, intractable, without status epilepticus (2) [place]-Gastaut syndrome, intractable, without status epilepticus: Code(s): G40.814 - [place]ric[place]-Gastaut syndrome, intractable, without status epilepticus Category: Medical Plan EEG MRI report from [facility] I will refer him to [facility] Epilepsy clinic for further management He is on 5 meds for seizures - depakote. lamotrigine, topiramate, trileptal , keppra clobazam . Increase depakote 500mg 1 tab qam and 2 tabs qhs Orders: Referrals Neurology Referral G40.909 - Epilepsy, unspecified, not intractable, without status epilepticus Medications: Changed From divalproex (Depakote) 500 mg PO BID 30 days 60 tabs 3RF To divalproex (Depakote) 1 tab qam and 2 tabs qhs orally 2 times a day; 1 tab qam and 2 tabs qhs 90 tabs 3RF 30 days Coding Level of Care Code New Pt Level 4 (52448) Complex EM visit Add On G2211 Diagnoses Other generalized epilepsy, intractable, without status epilepticus G40.419 Epilepsy type: other generalized Intractability: intractable Status epilepticus: without status epilepticus [place]-Gast[place] syndrome, intractable, without status epilepticus G40.814
[2024-12-06 09:43] VITALS: BP 112/80; PULSE 92; O2SAT 98; BMI 24.9
--- OUTSIDE RECORDS SUMMARY | 2024-12-06 10:23 | XMS_ITS | Clinical Summary ---
Author Organization 299 [facility] Address [address] [place] [address] Phone Care Team Providers Care Major Account Manager Name Role Phone Emmy Tarango CARDIOVASCULAR DISEASE SPECIALIST Primary Care Prov ider Encounters Date Type Department Care Team Description 11/12/2024 11:30 AM EDT - 11/12/2024 11:59 PM EDT Hospital Encounter [facility] Non-Invasive Cardiology [address] [place] [address] Generalized anxiety disorder Discharge Disposition: [...] GEMUSE QTc 430 ms GEMUSE P Wave Alger 52 degrees GEMUSE R Alger 64 degrees GEMUSE T Alger 37 degrees GEMUSE ECG Interpretation Sinus tachycardia Otherwise normal ECG No previous ECGs available Confirmed by CELE BOWSER ([id number]) on 11/13/2024 11:44:59 AM GEMUSE 11/12/2024 12:0 9 PM EDT 11/13/2024 11:44 AM EDT Emmy Tarango NP ECG ORDERABLES Fi nal Result Performing Organization Address City/[facility]/ZIP Co de Phone Number GEMUSE * (ABNORMAL) Thyroid stimulating hormone with reflex to free t4 and free t3 (11/12/2024 11:18 AM EDT) Pathologist [facility] TSH 11.88(H) 0.40 - 4.00 mcIU/mL LAB CHEMISTRY METHOD 11/12/2024 2:23 PM EDT [facility] Blood Venous blood specimen / Unknown Venipuncture / Unknown 11/12/2024 11:18 AM EDT 11/12/2024 12:13 PM EDT Emmy Tarango NP LAB BLOOD ORDERABL ES Final Result Performing Organization Address City/[facility]/ZIP Co de Phone Number [facility] [address] [place] [address], [place] [phone] * Free thyroxine with reflex to free triiodothyronine (11/12/2024 11:18 AM EDT) Pathologist [facility] Free T4 0.76 0.70 - 1.80 ng/dL LAB CHEMISTRY METHOD 11/12/2024 2:56 PM EDT [facility] Blood Venous blood specimen / Unknown Venipuncture / Unknown 11/12/2024 11:18 AM EDT 11/12/2024 12:13 PM EDT Emmy Tarango NP LAB BLOOD ORDERABL ES Final Result [facility] [address] [place] [address], [place] [phone] * (ABNORMAL) Lipid panel with reflex to direct LDL (11/12/2024 11:18 AM EDT) [facility] Cholesterol 245(H) 0 - 200 mg/dL LAB CHEMISTRY METHOD 11/12/2024 1:54 PM EDT [facility] Triglycerides 144 0 - 150 mg/dL LAB CHEMISTRY METHOD 11/12/2024 1:54 PM T [facility] HDL 68 >=40 mg/dL LAB CHEMISTRY METHOD 11/12/2024 1:54 PM EDT [facility] LDL Calculated 148(H) 0 - 100 mg/dL LAB CHEMISTRY METHOD 11/12/2024 1:54 PM EDT [facility] VLDL Cholesterol [place] 28.8 mg/dL LAB CHEMISTRY METHOD 11/12/2024 1:54 PM EDT [facility] Non HDL Chol. (LDL+VLDL) 177(H) <145 mg/dL LAB CHEMISTRY METHOD 11/12/2024 1:54 PM EDT [facility] Chol/HDL Ratio 3.6 0.0 - 4.4 LAB CHEMISTRY METHOD 11/12/2024 1:54 PM EDT [facility] Blood Venous blood specimen / Unknown Venipuncture / Unknown 11/12/2024 11:18 AM EDT 11/12/2024 12:13 PM EDT us Emmy Tarango CARDIOVASCULAR DISEASE SPECIALIST LAB BLOOD ORDERABL ES Final Result [facility] [address] [place] [address], * (ABNORMAL) CBC auto differential (11/12/2024 11:18 AM EDT) WBC 9.7 4.8 - 10.8 K/mcL LAB HEMETOLOGY METHOD 11/12/2024 12:22 PM EDT [facility] RBC 4.30(L) 4.50 - 5.50 M/mcL LAB HEMETOLOGY METHOD 11/12/2024 12:22 PM EDT [facility] Hemoglobin 11.6(L) 13.5 - 17.5 g/dL LAB HEMETOLOGY METHOD 11/12/2024 12:22 PM EDT [facility] Hematocrit 38.1(L) 42.0 - 54.0 % LAB HEMETOLOGY METHOD 11/12/2024 12:22 PM EDT [facility] MCV 88.2 79.0 - 98.0 FL LAB HEMETOLOGY METHOD 11/12/2024 12:22 PM EDT [facility] MCH 26.9(L) 27.0 - 32.0 pcg LAB HEMETOLOGY METHOD 11/12/2024 12:22 PM EDT [facility] MCHC 30.4(L) 32.0 - 37.0 g/dL LAB HEMETOLOGY METHOD 11/12/2024 12:22 PM EDT [facility] RDW 14.1 11.0 - 15.0 % LAB HEMETOLOGY METHOD 11/12/2024 12:22 PM [facility] Platelets 208 130 - 400 K/mcL LAB HEMETOLOGY METHOD 11/12/2024 12:22 PM [facility] MPV 10.4 7.0 - 11.0 FL LAB HEMETOLOGY METHOD 11/12/2024 12:22 PM [facility] NRBC 0.0 <1.0 % LAB HEMETOLOGY METHOD 11/12/2024 12:22 PM [facility] NRBC Absolute 0.00 <0.10 K/mcL LAB HEMETOLOGY METHOD 11/12/2024 12:22 PM [facility] Neutrophils Relative 76.4 % LAB HEMETOLOGY METHOD 11/12/2024 12:22 PM [facility] Lymphocytes Relative 12.6 % LAB HEMETOLOGY METHOD 11/12/2024 12:22 PM [facility] Monocytes Relative 9.0 % LAB HEMETOLOGY METHOD 11/12/2024 12:22 PM [facility] Eosinophils Relative 1.1 % LAB HEMETOLOGY METHOD 11/12/2024 12:22 PM [facility] Basophils Relative 0.2 % LAB HEMETOLOGY METHOD 11/12/2024 12:22 PM [facility] Immature Granulocytes Relative 0.7 % LAB HEMETOLOGY METHOD 11/12/2024 12:22 PM [facility] Neutrophils Absolute 7.42(H) 1.50 - 7.00 K/mcL LAB HEMETOLOGY METHOD 11/12/2024 12:22 PM [facility] Lymphocytes Absolute 1.22 1.00 - 5.00 K/mcL LAB HEMETOLOGY METHOD 11/12/2024 12:22 PM [facility] Monocytes Absolute 0.87 0.20 - 1.00 K/mcL LAB HEMETOLOGY METHOD 11/12/2024 12:22 PM EDT [facility] Eosinophils Absolute 0.11 0.00 - 0.50 K/[facility] LAB HEMETOLOGY METHOD 11/12/2024 12:22 PM EDT [facility] Basophils Absolute 0.02 0.00 - 0.20 K/[facility] LAB HEMETOLOGY METHOD 11/12/2024 12:22 PM EDT [facility] Immature Granulocytes Absolute 0.07(H) 0.00 - 0.03 K/[facility] LAB HEMETOLOGY METHOD 11/12/2024 12:22 PM EDT [facility] Blood Venous blood specimen / Unknown Venipuncture / Unknown 11/12/2024 11:18 AM EDT 11/12/2024 12:11 PM EDT Emmy Tarango LAB BLOOD ORDERABL ES Final Result Performing Organization Address City/[facility]/ZIP Co de Phone Number [facility] [address] [place] [address], [place] [phone] * (ABNORMAL) Vitamin D 25 hydroxy (11/12/2024 11:18 AM EDT) Vit D, 25-Hydroxy 7.7(L) 30.0 - 80.0 ng/mL LAB CHEMISTRY METHOD 11/12/2024 2:36 PM EDT [facility] Blood Venous blood specimen / Unknown Venipuncture / Unknown 11/12/2024 11:18 AM EDT 11/12/2024 12:13 PM EDT Emmy Tarango CARDIOVASCULAR DISEASE SPECIALIST LAB BLOOD ORDERABL ES Final Result Performing Organization Address City/[facility]/ZIP Co de Phone Number [facility] [address] [place] [address], [place] [phone] * Triiodothyronine free (11/12/2024 11:18 AM EDT) T3, Free 253 230 - 420 pcg/dL LAB CHEMISTRY METHOD 11/12/2024 3:59 PM EDT [facility] Blood Venous blood specimen / Unknown Venipuncture / Unknown 11/12/2024 11:18 AM EDT 11/12/2024 12:13 PM EDT Francisca Idalmis Tarango CARDIOVASCULAR DISEASE SPECIALIST LAB BLOOD ORDERABL ES Final Result Performing Organization Address [facility]/ZIP Co de Phone Number [facility] [address] [place] [address], [place] [phone] * Phosphorus (11/12/2024 11:18 AM EDT) Pathologist [facility] Phosphorus 2.8 2.5 - 4.5 mg/dL LAB CHEMISTRY METHOD 11/12/2024 1:49 PM EDT [facility] Blood Venous blood specimen / Unknown Venipuncture / Unknown 11/12/2024 11:18 AM EDT 11/12/2024 12:13 PM EDT Emmy Tarango CARDIOVASCULAR DISEASE SPECIALIST LAB BLOOD ORDERABL ES Final Result Performing Organization Address [facility]/ZIP Co de Phone Number [facility] [address] [place] [address], [place] [phone] * Hemoglobin A1c (11/12/2024 11:18 AM EDT) Hemoglobin A1C 5.1 <6.5 % LAB CHEMISTRY METHOD 11/12/2024 1:47 PM EDT [facility] Mean Bld Glu Estim. 100 mg/dL LAB CHEMISTRY METHOD 11/12/2024 1:47 PM EDT [facility] Blood Venous blood specimen / Unknown Venipuncture / Unknown 11/12/2024 11:18 AM EDT 11/12/2024 12:11 PM EDT Emmy Tarango LAB BLOOD ORDERABL ES Final Result Performing Organization Address [facility]/ZIP Co de Phone Number [facility] [address] [place] [address], [place] [phone] * Bilirubin, direct (11/12/2024 11:18 AM EDT) Bilirubin, Direct <0.1 0.0 - 0.3 mg/dL LAB CHEMISTRY METHOD 11/12/2024 1:54 PM EDT [facility] Blood Venous blood specimen / Unknown Venipuncture / Unknown 11/12/2024 11:18 AM EDT 11/12/2024 12:13 PM EDT Emmy Tarango LAB BLOOD ORDERABL ES Final Result Performing Organization Address [facility] Co de Phone Number [facility] [address] [place] [address], [place] [phone] * (ABNORMAL) Comprehensive metabolic panel (11/12/2024 11:18 AM EDT) Pathologist [facility] Sodium 143 133 - 145 mmol/L LAB CHEMISTRY METHOD 11/12/2024 1:54 PM EDT [facility] Potassium 4.0 3.5 - 5.5 mmol/L LAB CHEMISTRY METHOD 11/12/2024 1:54 PM EDT [facility] Chloride 109 96 - 110 mmol/L LAB CHEMISTRY METHOD 11/12/2024 1:54 PM EDT [facility] CO2 26 21 - 32 mmol/L LAB CHEMISTRY METHOD 11/12/2024 1:54 PM EDT [facility] Anion Gap 8 3 - 11 LAB CHEMISTRY METHOD 11/12/2024 1:54 PM EDT [facility] Glucose 77 70 - 100 mg/dL LAB CHEMISTRY METHOD 11/12/2024 1:54 PM [facility] BUN 10 5 - 25 mg/dL LAB CHEMISTRY METHOD 11/12/2024 1:54 PM [facility] Creatinine 0.90 0.70 - 1.30 mg/dL LAB CHEMISTRY METHOD 11/12/2024 1:54 PM [facility] eGFR 122 >=60 mL/min/1. 73m2 LAB CHEMISTRY METHOD 11/12/2024 1:54 PM [facility] Comment:Calculation based on the Chronic Kidney Disease Epidemiology Collaboration (CKD-EPI) equation refit without adjustment for race. BUN/Creatinine Ratio 11.1 LAB CHEMISTRY METHOD 11/12/2024 1:54 PM [facility] Calcium 9.2 8.5 - 10.5 mg/dL LAB CHEMISTRY METHOD 11/12/2024 1:54 PM [facility] AST (SGOT) 34 10 - 42 unit/L LAB CHEMISTRY METHOD 11/12/2024 1:54 PM [facility] ALT (SGPT) 29 10 - 60 unit/L LAB CHEMISTRY METHOD 11/12/2024 1:54 PM [facility] Alkaline Phosphatase 78 42 - 121 unit/L LAB CHEMISTRY METHOD 11/12/2024 1:54 PM [facility] Total Protein 8.9(H) 6.0 - 8.0 g/dL LAB CHEMISTRY METHOD 11/12/2024 1:54 PM [facility] Albumin 3.9 3.2 - 5.0 g/dL LAB CHEMISTRY METHOD 11/12/2024 1:54 PM [facility] Total Bilirubin 0.2 0.0 - 1.4 mg/dL LAB CHEMISTRY METHOD 11/12/2024 1:54 PM [facility] Blood Venous blood specimen / Unknown Venipuncture / Unknown 11/12/2024 11:18 AM EDT 11/12/2024 12:13 PM EDT us Emmy Tarango CARDIOVASCULAR DISEASE SPECIALIST LAB BLOOD ORDERABL ES Final Result [facility] [address] [place] [address], [place] [phone] from Last 3 Months Insurance MEDICA[place] - [place] MEDICARE Care Teams Major Account Manager Relationship Specialty Start Date End Date Emmy Tarango NP [address] [place] [phone] PCP - General Behavioral Health 11/12/24
== END 2024-12-06 10:19 | disposition home or self-care (01) ==
LOC: HO.HSMS 09:37
PROVIDERS: PCP Nurse Practitioner Family; Visit Provider Psychiatry & Neurology Neurology
DX: G40.419 Other generalized epilepsy and epileptic syndromes, intractable, without status epilepticus (principal); G40.814 Lennox-Gastaut syndrome, intractable, without status epilepticus
CPT/HCPCS: 99204; G2211

== ENCOUNTER → 2024-12-06 09:36 | Outpatient (BNVA) | payer MEDICARE, MEDICAID, SELFPAY | PROVIDERS: PCP Nurse Practitioner Family; Visit Provider Psychiatry & Neurology Neurology | DX: G40.419 Other generalized epilepsy and epileptic syndromes, intractable, without status epilepticus (principal); G40.814 Lennox-Gastaut syndrome, intractable, without status epilepticus | CPT/HCPCS: 99202 ==

== ENCOUNTER 2025-03-22 11:49 | Outpatient (AMB) | payer MEDICARE, MEDICAID, SELFPAY ==
--- NOTE | 2025-03-22 11:52 | MHC.PC.OV ---
Vital Signs 03/22/25 11:59 Height 5 ft 4 in Weight 146 lb BMI 25.1 BP 114/67 Blood Pressure Location Rt brachial Position Sitting Respiration 16 Pulse 88 Pulse Source Pulse Oximeter Temp 97.9 F Temp Source Oral Pulse Oximetry (%) 99 Oxygen Delivery Method Room Air Intake Visit Reasons: 2 mos HLD, vit D deficiency, hypothyroidism, epile Intake Note: patient here for follow up on HLD, Vit D deficiency, hypothyroidsm, epile Uniformer Required: Yes Uniformer Language: Hebrew Accompanied by: Mother Allergies No Known Allergies Allergy (Verified 03/22/25 11:57) Tobacco use date assessed: 03/22/25 Dental Screening Dental Screen Date: 03/22/25 Did you have a dental visit in the last 12 months?: No Did you have a dental problem in the last 6 months where you did not have access to dental care?: No Was dental information given to patient?: Yes HPI HPI Comments History of Present Illness Details 24-year-old male, accompanied by his mom and aunty, presents for hyperlipidemia, vitamin-D deficiency, hypothyroidism, and epilepsy follow-up. He admits to taking his medications as prescribed without adverse reactions. According to his aunt, patient had a seizure episode 2 weeks ago for which he was evaluated at [facility] ED and discharged same day. No medication changes were made. That was his only seizure since his last PCP's visit. He was seen by [facility] Neurology in 12/06/2024 and was referred to [facility] epilepsy Clinic. According to his aunt, patient has an appointment to establish with [facility] epilepsy clinic in May. No acute symptoms at this time. Patient did not perform blood work for this visit as planned. [facility] Medical History (Updated 12/06/24 @ 10:14 by Connie Cardenas MD) Fabricio-Gastaut syndrome, intractable, without status epilepticus Epilepsy Hyperthyroidism Brain tumor Unclassified epileptic seizures Anxiety Surgical History History of surgery of head Family History Mother High blood pressure Father Diabetes Maternal Grandmother High blood pressure CKD (chronic kidney disease) Social History Housing: Apartment Patient Tobacco Use Status: Never used Tobacco e-Cigarette/Vaping Use: Currently Using Second Hand Smoke Exposure: No service: No Current occupational status: disabled Current occupational exposures/hazards: No Cognitive needs: No Hearing needs: No Vision needs: Yes Questionnaire Thrive Questionnaire Date Thrive assessed: 12/03/24 I am a: Patient What is your living situation today?: I have a steady place to live Within the past 12 months, did the food you bought not last and you didn't have the money to get more?: Never true Within the past 12 months, did you worry whether your food would run out before you got money to buy more?: Sometimes True Do you have trouble paying for medicines?: No Do you have trouble getting transportation to medical appointments?: No Do you have trouble paying your heating and electricity bill?: No Do you have trouble taking care of your child, family member or friend?: I choose not to answer this question Do you have trouble with day-to-day activities such as bathing, preparing meals, shopping, managing finances, etc.?: Yes Are you currently unemployed and looking for a job?: Yes Are you interested in more education?: I choose not to answer this question Please select the resources that you would like help with: None Currently or been in a relationship where the following occur: No concerns reported THRIVE Score: 1 CHRIS-7 AMB Questionnaire CHRIS-7 Date CHRIS - 7 assessed: 12/03/24 Source: Developed by Drs. Nhan Boyle, Klaudia Kwok, Vazquez Moncada and colleagues, with an educational analilia from [employer]. Review of Systems Const Details: Const Denies chills, Denies fatigue, Denies fever(s), Denies headache(s) and Denies weakness ENT Denies dizziness and Denies headache(s) Card Denies chest pain, Denies lightheadedness, Denies dyspnea and Denies other (Palpitations) Resp Denies cough, Denies dyspnea, Denies wheezing and Denies other ( shortness of breath) GI Denies abdominal pain, Denies melena, Denies hematochezia, Denies change in bowel habits, Denies dyspepsia and Denies nausea Denies hematuria and Denies dysuria Musc Denies abnormal gait, Denies myalgias, Denies arthralgias, Denies numbness and Denies tingling Skin/Breast Denies rash, Denies unusual bruising and Denies wounds Neuro Denies abnormal gait, Denies dizziness, Denies headache(s), Denies memory loss, Denies numbness, Denies Sensory deficit (Neuro), Denies tingling and Denies weakness Psych Denies anxiety, Denies depression, Denies memory loss Endo Denies cold intolerance, Denies fatigue, Denies heat intolerance, Denies polydipsia and Denies polyuria Aller/Immun Denies wheezing Physical exam (Primary Care) Vital Signs: Last Vital Signs Temp 97.9 F 03/22/25 11:59 Pulse 88 03/22/25 11:59 Resp 16 03/22/25 11:59 BP 114/67 03/22/25 11:59 Pulse Ox 99 03/22/25 11:59 Oxygen Delivery Method Room Air 03/22/25 11:59 BMI result Body Mass Index 25.1 Tobacco/Smoking Status: Tobacco use Status Tobacco use date assessed 03/22/25 03/22/25 12:02 Patient Tobacco Use Status Never used Tobacco 03/22/25 11:55 e-Cigarette/Vaping Use Currently Using 03/22/25 11:55 Thrive Assessment: Date of Thrive Assessment Date Thrive assessed 12/03/24 03/22/25 11:55 Currently or been in a relationship where the following occur: No concerns reported Const Other: General: no acute distress and well developed Nutritional Appearance: well nourished Orientation/consciousness: patient oriented x3 HENMT Head: Yes normocephalic and Yes atraumatic Eyes General: appearance normal, both eyes and all related structures Pupils: Equal, round and reactive pupils present EOM: EOMs intact bilaterally Resp Effort & Inspection: normal respiratory effort Auscultation: clear to auscultation bilaterally Cardio Rate: regular rate Rhythm: regular rhythm Heart sounds: S1 normal heart sound present, S2 normal heart sound present, no gallops, no murmurs and no rubs GI Palpation (GI): No Abdominal aortic bruit present, Soft to palpation, nontender, No hepatosplenomegaly present and No Rebound tenderness present Auscultation: normal bowel sounds General: Yes no CVA tenderness Back/Spine/Pelvis Back: no CVA tenderness Cervical Spine: cervical ROM normal and No Cervical spine tenderness Thoracic/Lumbar Spine: thoraco-lumbar ROM normal, No pain with thoraco-lumbar ROM, No thoracic spinal tenderness and No lumbar spinal tenderness Extrem General: Yes normal to inspection, No edema and No calf tenderness Skin General: warm and dry. Normal skin color. Normal skin turgor Neuro General: patient oriented x3, gait normal and no focal neuro deficit Cranial nerves: Yes Equal, round and reactive pupils present Cognition (Neuro): normal cognition Gait exam (Neuro): Normal gait present Sensory Exam: No Sensory deficit (Neuro) Psych Appearance: grossly normal Affect: normal affect Attitude: cooperative Thought process: Normal thought process present Coding Level of Care Code Est Pt Level 3 (65992) Diagnoses Nonintractable epilepsy without status epilepticus, unspecified epilepsy type G40.909 Epilepsy type: unspecified Intractability: not intractable Status epilepticus: without status epilepticus Assessment & Plan Assessment & Plan (1) Epilepsy: Code(s): G40.909 - Epilepsy, unspecified, not intractable, without status epilepticus Category: Medical Qualifiers: Epilepsy type: unspecified Intractability: not intractable Status epilepticus: without status epilepticus Qualified Code(s): G40.909 - Epilepsy, unspecified, not intractable, without status epilepticus Plan: Continue current treatment regimen. Clobazam refilled. Follow-up with [facility] epilepsy clinic as planned. Go to the ED with seizure episode. Perform fasting lab work before next visit. Follow-up for hyperlipidemia, vitamin-D deficiency, and hypothyroidism. Verbalized understanding and agreed with the plan. Medications: Refilled clobazam 10 mg PO BID 60 tabs 0RF 30 days
[2025-03-22 11:59] VITALS: BP 114/67; PULSE 88; RESP 16; TEMP 36.6; O2SAT 99; BMI 25.1
--- OUTSIDE RECORDS SUMMARY | 2025-03-22 14:55 | XMS_ITS | Clinical Summary ---
Author Organization 299 [facility] Address [address] [place] [address] Phone Care Team Providers Care Warehouse Puller Name Role Phone Emmy Taarngo BEAD WORKER SEWING Primary Care Prov ider Social History Tobacco Use Types Packs/Day Years [...] of 3 - 19+ 3-dose series) 2018 Depression Screening 06/16/2024 HIV Screening 11/12/2024 Hepatitis C Screening 11/12/2024 Medicare Annual Wellness Visit 11/12/2024 Social Influencers of Health Screening 11/12/2024 COVID-19 Vaccine (1 - 2023-2 5 season) 2025 Influenza Vaccine (#1) 2025 Cholesterol Screening (Lipid Panel) 11/12/2029 11/12/2024 DTaP,Tdap,and Td Vaccines (2 - Td or Tdap) 09/27/2034 09/27/2024 RSV Immunization Adult Patie nts (1 - 1-dose 75+ series) 2074 HIB Vaccines Aged Out No longer eligi [...] 5 Years) and At-Risk Patients (6 to 49 Years) Aged Out No longer eligi ble based on patient's age to complete this topic RSV Immunization Patients Un julio 20 months Aged Out No longer eligible b ased on patient's age to complete this topic Varicella Vaccines Aged Out No longer eligible based on patient's age to complete this topic Procedures Procedure Name Priority Date/Time Associated Diagnosis Comments LIPID PANEL WITH REFLEX TO DIRECT LDL Routine 11/12/2024 11:18 AM EDT Drug therapy from Last 3 Months or Most Recently Relevant to Health Maintenance Results * (ABNORMAL) Lipid panel with reflex to direct LDL (11/12/2024 11:18 AM EDT) Cholesterol 245(H) 0 - 200 mg/dL LAB CHEMISTRY METHOD 11/12/2024 1:54 PM [facility] Triglycerides 144 0 - 150 mg/dL LAB CHEMISTRY METHOD 11/12/2024 1:54 PM [facility] HDL 68 >=40 mg/dL LAB CHEMISTRY METHOD 11/12/2024 1:54 PM [facility] LDL Calculated 148(H) 0 - 100 mg/dL LAB CHEMISTRY METHOD 11/12/2024 1:54 PM [facility] VLDL Cholesterol [place] 28.8 mg/dL LAB CHEMISTRY METHOD 11/12/2024 1:54 PM [facility] Non HDL Chol. (LDL+VLDL) 177(H) <145 mg/dL LAB CHEMISTRY METHOD 11/12/2024 1:54 PM [facility] Chol/HDL Ratio 3.6 0.0 - 4.4 LAB CHEMISTRY METHOD 11/12/2024 1:54 PM [facility] Blood Venous blood specimen / Unknown Venipuncture / Unknown 11/12/2024 11:18 AM EDT 11/12/2024 12:13 PM EDT Emmy Tarango BEAD WORKER SEWING LAB BLOOD ORDERABL ES Final Result [facility] LAB [address] [place] [address], from Last 3 Months or Most Recently Relevant to Health Maintenance Insurance [place]ICA[place] - [place] MEDICARE Care Teams Warehouse Puller Relationship Specialty Start Date End Date Emmy Tarango NP [address] [place] [phone] PCP - General Behavioral Health 11/12/24
== END 2025-03-22 12:18 | disposition home or self-care (01) ==
LOC: HO.HMCFM 11:50
PROVIDERS: PCP Nurse Practitioner Family; Visit Provider Nurse Practitioner Family
DX: G40.909 Epilepsy, unspecified, not intractable, without status epilepticus (principal)

== ENCOUNTER → 2025-03-22 11:49 | Outpatient (BNVA) | payer MEDICARE, MEDICAID, SELFPAY | PROVIDERS: PCP Nurse Practitioner Family; Visit Provider Nurse Practitioner Family | DX: G40.909 Epilepsy, unspecified, not intractable, without status epilepticus (principal); E78.5 Hyperlipidemia, unspecified; E55.9 Vitamin D deficiency, unspecified; E03.9 Hypothyroidism, unspecified | CPT/HCPCS: 99212 ==

== ENCOUNTER 2025-04-08 09:38 | Outpatient (REF) | payer MEDICARE, MEDICAID, SELFPAY ==
--- OUTSIDE RECORDS SUMMARY | 2025-04-08 10:40 | XMS_ITS | Clinical Summary ---
Author Organization 299 [facility] Address [address] [place] [address] Phone Care Team Providers Care Sheeter Helper Name Role Phone Emmy Tarango GRAPPLE CREW LEADER Primary Care Prov ider Social History Tobacco [...] mg/dL LAB CHEMISTRY METHOD 11/12/2024 1:54 PM [facility] Triglycerides 144 0 - 150 mg/dL LAB CHEMISTRY METHOD 11/12/2024 1:54 PM [facility] HDL 68 >=40 mg/dL LAB CHEMISTRY METHOD 11/12/2024 1:54 PM [facility] LDL Calculated 148(H) 0 - 100 mg/dL LAB CHEMISTRY METHOD 11/12/2024 1:54 PM [facility] VLDL Cholesterol [place] 28.8 mg/dL LAB CHEMISTRY METHOD 11/12/2024 1:54 PM [facility] Non HDL Chol. (LDL+VLDL) 177(H) <145 mg/dL LAB CHEMISTRY METHOD 11/12/2024 1:54 PM [facility] Chol/HDL Ratio 3.6 0.0 - 4.4 LAB CHEMISTRY METHOD 11/12/2024 1:54 PM [facility] Blood Venous blood specimen / Unknown Venipuncture / Unknown 11/12/2024 11:18 AM EDT 11/12/2024 12:13 PM EDT Emmy Tarango GRAPPLE CREW LEADER LAB BLOOD ORDERABL ES Final Result [facility] LAB [address] [place] [address], from Last 3 Months or Most Recently Relevant to Health Maintenance Insurance [place] - [place] Care Teams Sheeter Helper Relationship Specialty Start Date End Date Emmy Tarango NP [address] [place] [phone] PCP - General Behavioral Health 11/12/24
[2025-04-08 10:50] LABS: Hematocrit 36.5 % (42.0-52.0); Hemoglobin 11.2 g/dl (14.0-18.0); Mean Corpuscular HGB Conc 30.7 g/dl (31.0-36.0); Mean Corpuscular Hemoglobin 26.4 pg (27.0-33.0); Mean Corpuscular Volume 86.1 fL (80.0-98.0); NRBC Abs Auto 0.000 X10*3/uL (0.0-0.012); NRBC Pct Auto 0.0 /100WBC (0.0-0.2); Platelet Count 165 X10*3/uL (160-400); Red Blood Count 4.24 X10*6/uL (4.60-5.80); White Blood Count 4.8 X10*3/uL (4.8-10.8)
[2025-04-08 11:59] LABS: Folate 8.7 ng/mL (> or = 4.0); Vitamin B12 370 pg/mL (200-900)
[2025-04-08 12:00] LABS: Ferritin 77 ng/mL (20-250)
[2025-04-08 12:21] LABS: Cholesterol 280 mg/dL (<200); HDL Cholesterol 51 mg/dL (>40); Iron 96 mcg/dL (45-160); Percent Iron Saturation 25 % (15-50); Total Iron Binding Capacity 380 mcg/dL (228-428); Triglycerides 194 mg/dL (<150); Unsaturated Iron Binding 284 ug/dL
[2025-04-08 12:47] LABS: Microalbum/Creatinine Ratio Ur 9.3 ug/mg cr (<30)
== END 2025-04-08 09:39 | disposition home or self-care (01) ==
LOC: HO.LAB 09:38
PROVIDERS: PCP Nurse Practitioner Family; Visit Provider Nurse Practitioner Family
DX: Z00.00 Encounter for general adult medical examination without abnormal findings (principal); D64.9 Anemia, unspecified; E78.00 Pure hypercholesterolemia, unspecified; E03.9 Hypothyroidism, unspecified; E55.9 Vitamin D deficiency, unspecified
CPT/HCPCS: 36415; 80061; 82043; 82306; 82570; 82607; 82728; 82746; 83540; 84443; 85027

== ENCOUNTER 2025-04-19 19:45 | Emergency (ER) | payer MEDICARE, MEDICAID, SELFPAY ==
--- NOTE | ~2025-04-19 | XR_ITS ---
CLINICAL HISTORY: chest pain 2 view chest x-ray Comparison: None Findings: Patchy airspace opacities in the central/ perihilar lungs bilaterally with mild bronchial wall inflammation. No pleural effusion or pneumothorax. Heart size normal. IMPRESSION: 1. Findings suggestive of bronchitis or atypical infectious process such as viral pneumonitis. This document has been electronically signed by: Nasir Rios MD on 04/19/2025 22:05:11
--- NOTE | 2025-04-19 19:47 | ECG_ITS ---
Test Reason : CP Blood Pressure : */* mmHG Vent. Rate : 80 BPM Atrial Rate : 80 BPM P-R Int : 156 ms QRS Dur : 86 ms QT Int : 356 ms P-R-T Axes : 60 53 27 degrees QTcB Int : 410 ms Normal sinus rhythm Normal ECG No previous ECGs available Referred By: Ellen Castaneda Electronically Signed By: Yunier Gauthier
[2025-04-19 20:15] VITALS: BP 118/71; PULSE 79; RESP 14; TEMP 36.8; O2SAT 100; BMI 25.4
[2025-04-19 20:19] LABS: Hematocrit 32.6 % (42.0-52.0); Hemoglobin 10.3 g/dl (14.0-18.0); Imm Gran Abs Auto 0.05 X10*3/uL (0.00-0.03); Imm Gran Pct Auto 1.0 % (0.0-0.4); Lymphocytes Absolute Auto 1.2 X10*3/uL (1.2-4.9); MANUAL DIFF FLAG NO; Mean Corpuscular HGB Conc 31.6 g/dl (31.0-36.0); Mean Corpuscular Hemoglobin 26.3 pg (27.0-33.0); Mean Corpuscular Volume 83.4 fL (80.0-98.0); NRBC Abs Auto 0.000 X10*3/uL (0.0-0.012); NRBC Pct Auto 0.0 /100WBC (0.0-0.2); Platelet Count 215 X10*3/uL (160-400); Red Blood Count 3.91 X10*6/uL (4.60-5.80); White Blood Count 5.0 X10*3/uL (4.8-10.8)
[2025-04-19 20:25] LABS: INTERNATIONAL NORM RATIO 1.2 (0.9-1.1); Prothrombin Time 13.2 SEC (10.9-12.4)
[2025-04-19 20:34] LABS: Alanine Aminotransferase 51 U/L (0-40); Albumin Level 4.8 g/dL (3.5-5.0); Alkaline Phosphatase 72 U/L (39-117); Anion Gap 13 (12-20); Aspartate Amino Transferase 49 U/L (5-37); Blood Urea Nitrogen 16 mg/dL (9-16); Calcium 9.9 mg/dL (8.4-10.2); Carbon Dioxide 27 mmol/L (22-29); Chloride 107 mmol/L (96-108); Creatinine Clr Calc Pharmacy 113.6; Estimated Glomerular Filt Rate > 60; Potassium 3.9 mmol/L (3.3-5.1); Sodium 143 mmol/L (135-145); Total Protein 8.8 g/dL (6.5-8.0)
[2025-04-19 20:40] LABS: Troponin-I High Sensitivity < 2.7 ng/L (<3.5-35.0)
[2025-04-19 20:48] VITALS: BP 123/82; PULSE 80; RESP 21; TEMP 36.6; O2SAT 99
--- NOTE | 2025-04-19 20:54 | PC.NURSE ---
seizure precautions in place. pt is on cardiac monitoring.
[2025-04-19 20:58] VITALS: BP 125/84; PULSE 75; RESP 18; TEMP 36.4; O2SAT 100
--- OUTSIDE RECORDS SUMMARY | 2025-04-19 21:06 | XMS_ITS | Clinical Summary ---
Author Organization [address] [facility] Address [address] [place] [address] Phone Care Team Providers Care Ships Or Barges Loader Name Role Phone Emmy Tarango BUSINESS DIRECTOR Primary Care Prov ider Social History Tobacco [...] mg/dL LAB CHEMISTRY METHOD 11/12/2024 1:54 PM [facility] Triglycerides 144 0 - 150 mg/dL LAB CHEMISTRY METHOD 11/12/2024 1:54 PM [facility] HDL 68 >=40 mg/dL LAB CHEMISTRY METHOD 11/12/2024 1:54 PM [facility] LDL Calculated 148(H) 0 - 100 mg/dL LAB CHEMISTRY METHOD 11/12/2024 1:54 PM [facility] VLDL Cholesterol [place] 28.8 mg/dL LAB CHEMISTRY METHOD 11/12/2024 1:54 PM [facility] Non HDL Chol. (LDL+VLDL) 177(H) <145 mg/dL LAB CHEMISTRY METHOD 11/12/2024 1:54 PM [facility] Chol/HDL Ratio 3.6 0.0 - 4.4 LAB CHEMISTRY METHOD 11/12/2024 1:54 PM [facility] Blood Venous blood specimen / Unknown Venipuncture / Unknown 11/12/2024 11:18 AM EDT 11/12/2024 12:13 PM EDT Emym Tarango BUSINESS DIRECTOR LAB BLOOD ORDERABL ES Final Result [facility] [address] [place] [address], from Last 3 Months or Most Recently Relevant to Health Maintenance Insurance MEDICAID - [place] MEDICARE Care Teams Ships Or Barges Loader Relationship Specialty Start Date End Date Emmy Tarango NP [address] [place] [phone] PCP - General Behavioral Health 11/12/24
--- NOTE | 2025-04-19 21:07 | PC.NURSE ---
Supervising Film Or Videotape Editor paged [phone]
--- NOTE | 2025-04-19 21:09 | ED_ITS ---
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 Reports he was walking from his bedroom to the bathroom when he had a seizure. Mom is at bedside and reports that he was witnessed to have sat down on the floor and fallen backwards. He did not hit his head on the ground. Sees for about a minute. Patient has frequent breakthrough seizures despite all of the antiepileptics he is on. No reported abdominal trauma or chest wall trauma. Denies associated shortness of breath, nausea, vomiting, diarrhea, urinary complaints. Has been feeling well prior to this. Mom also voices concern about the patient using nicotine. He vapes daily. Denies other illicit substance or alcohol use. Related Data Home Medications ?Medication ?Instructions ?Recorded ?Confirmed sertraline 50 mg tablet 50 mg PO QAM anxiety 5 12/06/24 Previous Rx's ?Medication ?Instructions ?Recorded nicotine 21 mg/24 hr daily 1 patch transdermal DAILY 6 weeks 09/27/24 transdermal patch #42 ea olanzapine 15 mg tablet 15 mg PO BEDTIME 30 days #30 tabs 10/15/24 sertraline 25 mg tablet 25 mg PO DAILY 30 days #30 t abs 10/15/24 cholecalciferol (vitamin D3) 50 50 mcg PO DAILY 90 day s #90 tabs 12/03/24 mcg (2,000 unit) tablet lamotrigine 25 mg tablet 25 mg PO BID 30 days #60 tab s 02/16/25 levetiracetam 1,000 mg tablet 1,000 mg PO BID 30 days #60 tabs 02/16/25 (Keppra) levetiracetam 500 mg tablet 500 mg PO BID 30 days #60 tabs 02/16/25 (Keppra) oxcarbazepine 600 mg tablet 600 mg PO BID 30 days #60 tabs 02/16/25 (Trileptal) topiramate 200 mg tablet (Topamax) 200 mg PO BID 30 da ys #60 tabs 02/16/25 levothyroxine 75 mcg tablet 75 mcg PO DAILY #90 tabs 0 02/18/25 (Synthroid) clobazam 10 mg tablet 10 mg PO BID 30 days #60 tab s 03/22/25 divalproex 500 mg tablet,delayed See Rx Instructions P O BID 30 days 03/22/25 release (Depakote) #90 tabs sucralfate 100 mg/mL oral 10 ml PO QID #414 mL 5 suspension (Carafate) Allergies Allergy/AdvReac Type Severity Reaction Status Date / Time No Known Allergies Allergy Verified 04/19/25 20:24 Review of Systems 2 Review of Systems: As per HPI, full review of systems performed and negative but for the above mentioned pertinent positives and negatives. [facility] Past Medical History Medical History [place]-Gastaut syndrome, intractable, without status epilepticus Epilepsy Hyperthyroidism Brain tumor Unclassified epileptic seizures Anxiety Surgical History History of surgery of head Family History Family History Mother High blood pressure Father Diabetes Maternal Grandmother High blood pressure CKD (chronic kidney disease) Social History Social History Housing: Apartment Patient Tobacco Use Status: Never used Tobacco e-Cigarette/Vaping Use: Currently Using Second Hand Smoke Exposure: No Advance Directives: No Advance Directives Information Provided: No service: No Current occupational status: disabled Current occupational exposures/hazards: No Cognitive needs: No Hearing needs: No Vision needs: Yes Physical Exam 2 Exam: Exam: GENERAL: Chronically ill-appearing, conversant, no acute distress. SKIN: Normal skin color for ethnicity, warm, dry, no rashes noted. HEENT: Atraumatic, multiple surgical scars, well healed, no stridor, posterior oropharynx nonerythematous, EOMI. NECK: Soft, supple, full ROM, midline structures nontender, no step-offs, no deformities, no lymphadenopathy. CHEST: Heart regular rate and rhythm, no murmurs, symmetric chest rise and fall. PULMONARY: Clear to auscultation bilaterally, no labored breathing, no wheezes/rhales/ rhonchi. ABDOMINAL: Softly distended, right-sided tenderness to palpation without rebound or guarding, positive bowel sounds in all quadrants. : Deferred. MUSCULOSKELETAL: Hypertonicity of the bilateral hands and wrists, full range of motion, no deformities, no peripheral edema. NEURO: Alert and oriented to person, CN II through XII intact, no focal neurologic deficits. PSYCHIATRIC: Flat affect, fluid speech, appropriate demeanor. Vital Signs: Vital Signs: Last Vital Signs Temp 97.7 F 04/19/25 23:00 Pulse 78 04/19/25 23:00 Resp 18 04/19/25 23:00 BP 125/84 04/19/25 23:00 Pulse Ox 100 04/19/25 23:00 O2 Del Method Room Air 04/19/25 23:00 BMI result Body Mass Index 25.4 Medications Administered Discontinued Medications Generic Name Dose Route Start Last Admin Trade Name Dafne PRN Reason Stop Dose Admin Acetaminophen 650 mg 04/19/25 22:01 04/19/25 22:36 Acetaminophen 325 Mg Tablet PO 04/19/25 22:02 650 mg ONCE ONE Administration Al Hydroxide/Mg Hydroxide 30 ml 04/19/25 22:01 04/19/25 22:36 Magnesium Hydrox/Alum Hydrox 30 Ml Oral.Susp PO 04/19/25 22:02 30 ml ONCE ONE Administration Lidocaine HCl 15 ml 04/19/25 22:01 04/19/25 22:36 Lidocaine Hcl Viscous 2 % 15 Ml Solution MUCOUS MEM 04/19/25 22:02 15 ml ONCE ONE Administration Medical Decision Making Medical Decision Making [facility] Narrative: This patient presents today with a chief complaint of abdominal pain. Differential diagnosis for this patient is broad. It includes appendicitis, cholecystitis, bowel obstruction, peptic ulcer disease, pyelonephritis, vascular pathology, among many others. A broad-based workup based on history and physical examination was obtained. Workup today has been reassuring. Patient is feeling improved after a GI cocktail and Tylenol. Pain is located mostly in the epigastrium, no chest wall tenderness to palpation, no evidence of injury after his seizure yesterday. He has frequent breakthrough seizures which is his baseline. Has had multiple brain surgeries, has a deep brain stimulator in place as well as 6 different antiepileptic medications. He is back to baseline right now and is feeling improved, requesting discharge home. He has an appointment with his neurologist at [facility] next month. Using shared decision making, plan for discharge home to follow-up with primary care and/or specialist. Patient understands and agrees with plan for discharge. Discharged home in stable condition. Differential Diagnosis Differential Diagnoses: The differential diagnosis associated with the presentation includes (As above) Admission/Observation Consideration of admission/observation: Escalation of care including admission/observation considered Lab Data [facility] Lab Attestation statement: I reviewed the patient's lab results. 04/19/25 20:15 04/19/25 19:55 Labs: Lab Results 04/19/25 04/19/25 Range/Units 19:55 20:15 WBC 5.0 (4.8-10.8) X10*3/uL RBC 3.91 L (4.60-5.80) X10*6/uL Hgb 10.3 L (14.0-18.0) g/dl Hct 32.6 L (42.0-52.0) % MCV 83.4 (80.0-98.0) fL MCH 26.3 L (27.0-33.0) pg MCHC 31.6 (31.0-36.0) g/dl RDW 15.1 (11.0-16.0) % Plt Count 215 D (160-400) X10*3/uL MPV 9.7 (9.4-12.4) fL Immature Gran % (Auto) 1.0 H (0.0-0.4) % Neut % (Auto) 65.5 (45-73) % Lymph % (Auto) 23.3 (20-40) % [place] % (Auto) 7.6 (2-11) % Eos % (Auto) 2.4 (0-4) % Baso % (Auto) 0.2 (0-2) % Lymph # (Auto) 1.2 (1.2-4.9) X10*3/uL [place] # (Auto) 0.4 (0.1-1.2) X10*3/uL Eos # (Auto) 0.1 (0.0-0.4) X10*3/uL Baso # (Auto) 0.0 (0.0-0.2) X10*3/uL Abs Immat Gran (auto) 0.05 H (0.00-0.03) X10*3/uL Absolute Neuts (auto) 3.3 (2.0-8.3) x10*3/uL Absolute Nucleated RBC 0.000 (0.0-0.012) X10*3/uL Nucleated RBC % (auto) 0.0 (0.0-0.2) /100WBC PT 13.2 H (10.9-12.4) SEC INR 1.2 H (0.9-1.1) Sodium 143 (135-145) mmol/L Potassium 3.9 (3.3-5.1) mmol/L Chloride 107 (96-108) mmol/L Carbon Dioxide 27 (22-29) mmol/L Anion Gap 13 (12-20) BUN 16 (9-16) mg/dL Creatinine 0.80 (0.5-1.4) mg/dL Estim Creat Clear Calc 113.6 Estimated GFR > 60 Random Glucose 89 (60-115) mg/dL Calcium 9.9 (8.4-10.2) mg/dL Total Bilirubin 0.2 (0.0-1.0) mg/dL AST 49 H (5-37) U/L ALT 51 H (0-40) U/L Alkaline Phosphatase 72 (39-117) U/L Troponin I High Sens < 2.7 (<3.5-35.0) ng/L Total Protein 8.8 H (6.5-8.0) g/dL Albumin 4.8 (3.5-5.0) g/dL Independent Interpretation I performed an independent interpretation of an: EKG and Plain X-Ray Interpretation: My independent interpretation of the chest x-ray reveals no consolidations, pulmonary edema, pleural effusion, pneumothorax, obvious bony abnormalities. My independent interpretation of the ECG reveals normal sinus rhythm with rate of 80, normal axis, normal intervals, no ST elevations or depressions to suggest ischemic changes, no previous for comparison. Radiology Impression Discussion of test interpretation with radiology: I have reviewed the radiologist's reading. Independent Historian Clinical information obtained from an independent historian. History obtained from or confirmed by: Parent External Record Review External record reviewed: Inpatient record and Office record Prescription Management I considered prescription management with: Pain Medication and Other (Antacid) Chronic Conditions Patient?s care impacted by: Other (Epilepsy) Social Determinants Patient?s care significantly limited by Social Determinants of Health including: Other Social Determinant of Health Discharge Plan Discharge Clinical Impression: Acute epigastric pain, Breakthrough seizure Patient Disposition: Home, Self-Care Instructions: Iron Rich Diet (ED), Noncardiac Chest Pain (ED) Additional Instructions: Use so Carafate for upper abdominal pain/chest pain as needed. Return to the emergency department immediately with any new or worsening symptoms including: Worsening chest pain, difficulty breathing, fevers greater than 100?, any new symptom that concerns you. Call 911 with any medical emergency. Prescriptions: New sucralfate [Carafate] 100 mg/mL suspension 10 ml PO QID Qty: 414 0RF Rx Instructions: swish in mouth and swallow; use after food/drink No Action olanzapine 15 mg tablet 15 mg PO BEDTIME 30 Days Qty: 30 3RF sertraline 25 mg tablet 25 mg PO DAILY 30 Days Qty: 30 3RF topiramate [Topamax] 200 mg tablet 200 mg PO BID 30 Days Qty: 60 3RF levetiracetam [Keppra] 500 mg tablet 500 mg PO BID 30 Days Qty: 60 3RF lamotrigine 25 mg tablet 25 mg PO BID 30 Days Qty: 60 3RF oxcarbazepine [Trileptal] 600 mg tablet 600 mg PO BID 30 Days Qty: 60 3RF levetiracetam [Keppra] 1,000 mg tablet 1,000 mg PO BID 30 Days Qty: 60 3RF levothyroxine [Synthroid] 75 mcg tablet 75 mcg PO DAILY Qty: 90 1RF divalproex [Depakote] 500 mg tablet,delayed release (DR/EC) See Rx Instructions PO BID 30 Days Qty: 90 3RF Rx Instructions: 1 tab qam and 2 tabs qhs orally 2 times a day; 1 tab qam and 2 tabs qhs cholecalciferol (vitamin D3) 50 mcg (2,000 unit) tablet 50 mcg PO DAILY 90 Days Qty: 90 2RF sertraline 50 mg tablet 50 mg PO QAM nicotine 21 mg/24 hr patch 24 hour 1 patch transdermal DAILY 42 Days Qty: 42 0RF clobazam 10 mg tablet 10 mg PO BID 30 Days Qty: 60 0RF Interventions: ED Discharge Assessment Last Done: 04/19/25 23:00 Discharge Date/Time: 04/19/25 23:01 Print Language: [place]
[2025-04-19 21:54] VITALS: BP 125/84; PULSE 78; RESP 18; TEMP 36.5; O2SAT 100
[2025-04-19] MEDS: Magnesium Hydrox/Alum Hydrox 30 ML ORAL.SUSP PO (22:36)
[2025-04-19] MEDS: Lidocaine HCl Viscous 2 % 15 ML SOLUTION MUCOUS MEM (22:36)
[2025-04-19 23:00] VITALS: BP 125/84; PULSE 78; RESP 18; TEMP 36.5; O2SAT 100
== END 2025-04-19 23:01 | disposition home or self-care (01) ==
PROVIDERS: Registered Nurse Emergency; Emergency Provider Emergency Medicine; PCP Nurse Practitioner Family
DX: R10.13 Epigastric pain (principal); G40.909 Epilepsy, unspecified, not intractable, without status epilepticus; Z79.899 Other long term (current) drug therapy; Z96.82 Presence of neurostimulator
CPT/HCPCS: 36415; 71046; 80053; 84484; 85025; 85610; 93005; 99283; 99285

== ENCOUNTER → 2025-04-19 19:47 | Outpatient (BNV) | payer MEDICARE, MEDICAID, SELFPAY | PROVIDERS: Emergency Provider Emergency Medicine; PCP Nurse Practitioner Family; Visit Provider Internal Medicine Cardiovascular Disease | DX: R07.9 Chest pain, unspecified (principal) | CPT/HCPCS: 93010 ==

== ENCOUNTER → 2025-04-19 19:54 | Outpatient (BNV) | payer MEDICARE, MEDICAID, SELFPAY | PROVIDERS: Emergency Provider Emergency Medicine; PCP Nurse Practitioner Family; Visit Provider Radiology Diagnostic Radiology | DX: R07.9 Chest pain, unspecified (principal) | CPT/HCPCS: 71046 ==

== ENCOUNTER 2025-05-02 11:05 | Outpatient (AMB) | payer MEDICARE, MEDICAID, SELFPAY ==
--- NOTE | 2025-05-02 11:09 | MHC.PC.OV ---
Vital Signs 05/02/25 11:18 Height 5 ft 3 in Weight 145 lb 6 oz BMI 25.7 BP 119/72 Blood Pressure Location Lt brachial Position Sitting Respiration 16 Pulse 97 Pulse Source Pulse Oximeter Temp 97.6 F Temp Source Oral Pulse Oximetry (%) 99 Oxygen Delivery Method Room Air Intake Visit Reasons: 2 mos HLD, vit D deficiency, hypothyroidism, epile Intake Note: patient here for 2month follow up on HLD, Vit D deficiency, hypothyroidsm and epile Emergency Response Coordinator Required: Yes Emergency Response Coordinator Language: Metalsmith Helper Name: Anahi [phone] Allergies No Known Allergies Allergy (Verified 05/02/25 11:13) Tobacco use date assessed: 05/02/25 Dental Screening Dental Screen Date: 05/02/25 Did you have a dental visit in the last 12 months?: No Did you have a dental problem in the last 6 months where you did not have access to dental care?: No Was dental information given to patient?: No HPI HPI Comments History of Present Illness Details 24-year-old French speaking male, accompanied by his mother, presents for hyperlipidemia, vitamin-D deficiency, and hypothyroidism follow-up. He admits to taking his medications as prescribed without adverse reactions. According to his mom, patient consumes significant amounts of fast foods, can foods, and restaurant foods. He took medication for elevated while living in [place], but has not been on medication since relocated to the [facility]. His mom also notes that the patient snores when he sleeps at night and that has been ongoing for a while. However, his sleep is adequate on medications. No acute symptoms at this time. Interpretation by a professional judicial law clerk, via voice, on electronic tablet. [facility] Medical History Fabricio-Gastaut syndrome, intractable, without status epilepticus Epilepsy Hyperthyroidism Brain tumor Unclassified epileptic seizures Anxiety Surgical History History of surgery of head Family History Mother High blood pressure Father Diabetes Maternal Grandmother High blood pressure CKD (chronic kidney disease) Social History Housing: Apartment Patient Tobacco Use Status: Never used Tobacco e-Cigarette/Vaping Use: Currently Using Second Hand Smoke Exposure: No service: No Current occupational status: disabled Current occupational exposures/hazards: No Cognitive needs: No Hearing needs: No Vision needs: Yes Questionnaire Thrive Questionnaire Date Thrive assessed: 12/03/24 I am a: Patient What is your living situation today?: I have a steady place to live Within the past 12 months, did the food you bought not last and you didn't have the money to get more?: Never true Within the past 12 months, did you worry whether your food would run out before you got money to buy more?: Sometimes True Do you have trouble paying for medicines?: No Do you have trouble getting transportation to medical appointments?: No Do you have trouble paying your heating and electricity bill?: No Do you have trouble taking care of your child, family member or friend?: I choose not to answer this question Do you have trouble with day-to-day activities such as bathing, preparing meals, shopping, managing finances, etc.?: Yes Are you currently unemployed and looking for a job?: Yes Are you interested in more education?: I choose not to answer this question Please select the resources that you would like help with: None Currently or been in a relationship where the following occur: No concerns reported THRIVE Score: 1 CHRIS-7 AMB Questionnaire CHRIS-7 Date CHRIS - 7 assessed: 12/03/24 Source: Developed by Drs. Nhan Boyle, Klaudia Kwok, Vazquez Moncada and colleagues, with an educational analilia from [employer]. Review of Systems Const Details: Const Denies chills, Denies fatigue, Denies fever(s), Denies headache(s) and Denies weakness ENT Denies dizziness and Denies headache(s) Card Denies chest pain, Denies lightheadedness, Denies dyspnea and Denies other (Palpitations) Resp Denies cough, Denies dyspnea, Denies wheezing and Denies other ( shortness of breath) GI Denies abdominal pain, Denies melena, Denies hematochezia, Denies change in bowel habits, Denies dyspepsia and Denies nausea Denies hematuria and Denies dysuria Musc Denies abnormal gait, Denies myalgias, Denies arthralgias, Denies numbness and Denies tingling Skin/Breast Denies rash, Denies unusual bruising and Denies wounds Neuro Denies abnormal gait, Denies dizziness, Denies headache(s), Denies memory loss, Denies numbness, Denies Sensory deficit (Neuro), Denies tingling and Denies weakness Psych Denies anxiety, Denies depression, Denies memory loss Endo Denies cold intolerance, Denies fatigue, Denies heat intolerance, Denies polydipsia and Denies polyuria Aller/Immun Denies wheezing Physical exam (Primary Care) Vital Signs: Last Vital Signs Temp 97.6 F 05/02/25 11:18 Pulse 97 05/02/25 11:18 Resp 16 05/02/25 11:18 BP 119/72 05/02/25 11:18 Pulse Ox 99 05/02/25 11:18 Oxygen Delivery Method Room Air 05/02/25 11:18 BMI result Body Mass Index 25.7 Tobacco/Smoking Status: Tobacco use Status Tobacco use date assessed 05/02/25 05/02/25 11:19 Patient Tobacco Use Status Never used Tobacco 05/02/25 11:19 e-Cigarette/Vaping Use Currently Using 05/02/25 11:19 Thrive Assessment: Date of Thrive Assessment Date Thrive assessed 12/03/24 05/02/25 11:19 Currently or been in a relationship where the following occur: No concerns reported Const Other: General: no acute distress and well developed Nutritional Appearance: well nourished Orientation/consciousness: patient oriented x3 HENMT Head: Yes normocephalic and Yes atraumatic Eyes General: appearance normal, both eyes and all related structures Pupils: Equal, round and reactive pupils present EOM: EOMs intact bilaterally Resp Effort & Inspection: normal respiratory effort Auscultation: clear to auscultation bilaterally Cardio Rate: regular rate Rhythm: regular rhythm Heart sounds: S1 normal heart sound present, S2 normal heart sound present, no gallops, no murmurs and no rubs Extrem General: Yes normal to inspection, No edema and No calf tenderness Skin General: warm and dry. Normal skin color. Normal skin turgor Neuro General: patient oriented x3, gait normal and no focal neuro deficit Cranial nerves: Yes Equal, round and reactive pupils present Cognition (Neuro): normal cognition Gait exam (Neuro): Normal gait present Sensory Exam: No Sensory deficit (Neuro) Psych Appearance: grossly normal Affect: normal affect Attitude: cooperative Thought process: Normal thought process present Coding Level of Care Code Est Pt Level 4 (11348) Diagnoses Hyperlipidemia E78.5 Transaminitis R74.01 Hypothyroidism E03.9 Vitamin D deficiency E55.9 Normocytic anemia D64.9 Snoring R06.83 Assessment & Plan Assessment & Plan (1) Hyperlipidemia: Code(s): E78.5 - Hyperlipidemia, unspecified Category: Medical Plan: Recent triglycerides, total cholesterol, and LDL levels are elevated, 194, 280, and 191 respectively. Atorvastatin 20 mg daily ordered; advised to take as prescribed. Advised to limit foods high in saturated fat and avoid foods high in trans fat. Routine exercise encouraged. Fast for 10-12 hours, may drink water, and perform lipid panel blood work a few days before next visit. Follow-up for transfer of care with a new provider, hyperlipidemia, and transaminitis in 2 months. Return sooner with symptoms or concerns. Verbalized understanding and agreed with the plan. (2) Transaminitis: Code(s): R74.01 - Elevation of levels of liver transaminase levels Category: Medical Plan: Recent AST and ALT are slightly elevated, 49 and 51 respectively. Healthy diet/weight management encouraged. Will recheck liver panel in 2 months. Verbalized understanding and agreed with the plan. (3) Hypothyroidism: Code(s): E03.9 - Hypothyroidism, unspecified Category: Medical Plan: Recent TSH level was normal. Continue current treatment regimen. Verbalized understanding and agreed with the plan. (4) Vitamin D deficiency: Code(s): E55.9 - Vitamin D deficiency, unspecified Category: Medical Plan: Recent vitamin-D level is normal. Continue current treatment regimen. Verbalized understanding and agreed with the plan. (5) Normocytic anemia: Code(s): D64.9 - Anemia, unspecified Category: Medical Plan: Recent RBC and H&H is slightly elevated, MCV is normal. Recent iron studies, vitamin B12, and folate levels were normal. He has history of normocystic anemia. Referred to Hematology/Oncology for further workup. (6) Snoring: Code(s): R06.83 - Snoring Category: Medical Plan: According to his mom, patient snores at night. However, his sleep is adequate. Referred to [facility] sleep medicine for a sleep study. Orders: Orders Lipid Panel 2 Months E78.5 - Hyperlipidemia, unspecified Liver Panel 2 Months R74.01 - Elevation of levels of liver transaminase levels Referrals Sleep Medicine Referral R06.83 - Snoring Hematology & Oncology Referral D64.9 - Anemia, unspecified Medications: New atorvastatin (Lipitor) 20 mg PO BEDTIME 30 tabs 3RF 30 days
[2025-05-02 11:18] VITALS: BP 119/72; PULSE 97; RESP 16; TEMP 36.4; O2SAT 99; BMI 25.7
== END 2025-05-02 11:51 | disposition home or self-care (01) ==
LOC: HO.HMCFM 11:06
PROVIDERS: PCP Nurse Practitioner Family; Visit Provider Nurse Practitioner Family
DX: E78.5 Hyperlipidemia, unspecified (principal); R74.01 Elevation of levels of liver transaminase levels; E03.9 Hypothyroidism, unspecified; E55.9 Vitamin D deficiency, unspecified; D64.9 Anemia, unspecified; R06.83 Snoring

== ENCOUNTER → 2025-05-02 11:05 | Outpatient (BNVA) | payer MEDICARE, MEDICAID, SELFPAY | PROVIDERS: PCP Nurse Practitioner Family; Visit Provider Nurse Practitioner Family | DX: E78.5 Hyperlipidemia, unspecified (principal); R74.01 Elevation of levels of liver transaminase levels; E03.9 Hypothyroidism, unspecified; E55.9 Vitamin D deficiency, unspecified; D64.9 Anemia, unspecified; R06.83 Snoring | CPT/HCPCS: 99212 ==